=== PATIENT | female | born 1970 | race Caucasian/White ===

== ENCOUNTER 2019-02-17 15:18 | Emergency (ER) | payer BC, SELFPAY ==
[2019-02-17 15:19] VITALS: BP 155/89; PULSE 79; RESP 16; TEMP 36.4; O2SAT 97; BMI 55.0
--- NOTE | 2019-02-17 15:42 | ED.VIS.GEN ---
History of Present Illness Chief Complaint: Back Informant: Patient Onset: Days Context: Gradual Onset, - - Worse today Timing: Waxes and wanes Current Severity: Mild Maximum Severity: Moderate Narrative: Patient presents with right mid back pain. Patient states pain is been mild the past several days but seem to worsen today. It does not radiate anywhere. It is worse when she twists to the left. She does not have any urinary symptoms. She has no known injury to her back. - Past Medical History (1) Hypertension Status: Chronic (2) Hypothyroid Status: Chronic Past Medical History - Allergies and Home Meds Allergies/Adverse Reactions: Allergies Penicillins Allergy (Verified 02/17/19 15:20) Hives Primary Care Physician: Josh Hartman DO [Primary Care Provider] - Smoking Status: Never smoker Review of Systems General: Denies: Chills, Fever Eyes: Denies: Visual changes - bilaterally ENT: Denies: Bilateral ear pain Cardiovascular: Denies: Chest pain Respiratory: Denies: Dyspnea, Cough Gastrointestinal: Denies: Abdominal pain, Nausea, Vomiting, Diarrhea Musculoskeletal: Reports: Back pain. Denies: Extremity Pain Skin: Denies: Rash Neurological: Denies: Headache, Weakness, Numbness Allergy: Denies: Uticaria Physical Exam Vital Signs/Narrative: Vital Signs Temp Pulse Resp BP Pulse Ox 02/17/19 15:19 97.5 F L 79 16 155/89 H 97 Inital Vital Signs reviewed: Yes General: Well nourished, Well developed Head: Normocephalic ENT: Moist mucous membranes Neck: Supple Cardiovascular: Regular rate, Regular rhythm Respiratory: No distress, CTA bilaterally Abdomen: Soft, Nontender Back: - - Patient has reproducible tenderness just to the right of the lower thoracic spine. No overlying skin changes. Skin: Normal color Neurological: Alert, Oriented x3, Normal Strength, Normal Sensation Psychological: Normal affect Diagnostic/Tx/Re-eval Laboratory Results 02/17/19 15:55 Urine Color Yellow Urine Clarity Sl. Cloudy Urine pH 6.0 Ur Specific [place] 1.015 Urine Protein Negative Urine Glucose (UA) Normal Urine Ketones Negative Urine Occult Blood Negative Urine Nitrite Negative Urine Bilirubin Negative Urine Urobilinogen Normal Ur Leukocyte Esterase Negative Urine RBC 0 SEEN Urine WBC 0 SEEN Ur Squamous Epith Cells 0-5 SEEN Urine Bacteria RARE Urine Mucus 0 SEEN - Medical Decision Making Patient taken Aleve just prior to arrival. Urinalysis was checked and unremarkable. I do believe her back pain is secondary to muscle strain. She will be written for prescription strength Aleve and given a few Thornton for breakthrough pain. ED Disposition - Plan for ED Patient: Disposition: Home or Assisted Living Diagnosis: Back pain Instructions: BACK PAIN (Acute or Chronic) Prescriptions: Naproxen [Naprosyn] 500 mg PO BID PRN PRN #20 tab PRN Reason: Pain Score 1-10/10 Transmission Status: Pending to [facility] Hydrocodone Bitart/Apap 5-325 [Thornton 5MG-325MG] 1 tablet PO Q6H PRN PRN 3 Days #10 tablet PRN Reason: Pain Transmission Status: Sent to [facility] Referrals: Josh Hartman DO [Primary Care Provider] - 1 Week if not improving
[2019-02-17 15:59] LABS: Mucous, Urine 0 SEEN /hpf (<or=2+); Red Blood Cells-Urine 0 SEEN /hpf (0-5); White Blood Cells 0 SEEN /hpf (0-5)
[2019-02-17 16:02] LABS: Color, Urine Yellow (Yellow); Glucose, Dipstick Normal (Normal); Ketone-Dipstick Negative (Negative); Leukocyte Esterase-Dipstick Negative /ul (Negative); Nitrite-Dipstick Negative (Negative); Occult Blood-Urine Negative /ul (Negative); Protein-Dipstick Negative (Negative); Specific Gravity, Urine 1.015 (1.002-1.030); Urine Bilirubin Dipstick Negative (Negative); Urine Clarity Sl. Cloudy (Clear); Urine Urobilinogen Normal (Normal)
[2019-02-17 16:09] LABS: Bacteria RARE /hpf (None Seen); Squamous Epithelial Cells - UA 0-5 SEEN /hpf (5-10)
== END 2019-02-17 16:45 | disposition home or self-care (01) ==
PROVIDERS: Emergency Provider Emergency Medicine; Family Provider Student in an Organized Health Care Education/Training Program; PCP Student in an Organized Health Care Education/Training Program
DX: M54.9 Dorsalgia, unspecified (principal); I10 Essential (primary) hypertension; E03.9 Hypothyroidism, unspecified; Z88.0 Allergy status to penicillin
CPT/HCPCS: 81001; 99283

== ENCOUNTER → 2020-07-05 17:41 | Outpatient (CLI) | payer BC, SELFPAY ==
[2020-06-25 14:11] VITALS: BMI 54.1
--- NOTE | 2020-07-05 17:44 | MRI_ITS ---
STUDY: MRI LEFT KNEE REASON FOR EXAM: Female, 49 years old. Medial knee pain, injury TECHNIQUE: Standardized fat and water weighted pulse sequences were obtained in all 3 orthogonal planes. COMPARISON: None. FINDINGS: Normal medial meniscus. Normal hyaline cartilage of the medial femorotibial compartment. Normal medial femoral condyle and tibial plateau. Normal medial collateral ligamentous complex (MCL). Normal distal semimembranosus, gracilis and semitendinosus tendons. Normal lateral meniscus. Normal hyaline cartilage of the lateral femorotibial compartment. Normal lateral femoral condyle and tibial plateau. Normal proximal tibiofibular articulation. Normal lateral collateral (fibular) ligament. Normal popliteus tendon. Normal biceps femoris tendon. Normal anterior cruciate ligament (ACL). Normal posterior cruciate ligament (PCL). There is arthrosis of the patellofemoral articulation. There is diffuse, less than 50% thickness articular cartilage loss of the patellofemoral compartment. Normal medial and lateral patellar retinaculum. Normal quadriceps tendon. Normal patellar tendon. Normal Hoffa''s fat pad. There is no joint effusion. Mild tricompartmental osteoarthritis. The soft tissues are unremarkable. The otherwise visualized osseous structures are unremarkable. MRI/Lower Ext Joint Only (Routine) IMPRESSION: No evidence of internal drainage. [id number] chondromalacia patella. Mild tricompartmental osteoarthritis. No significant joint effusion. Electronically Signed: Andre Casillas DO at 6:36 EDT Tel , Service support ,
== END ==
LOC: MRI 17:44
PROVIDERS: PCP Student in an Organized Health Care Education/Training Program; Referring Provider Orthopaedic Surgery; Visit Provider Orthopaedic Surgery
DX: S83.202A Bucket-handle tear of unspecified meniscus, current injury, unspecified knee, initial encounter (principal); M25.562 Pain in left knee
CPT/HCPCS: 73721

== ENCOUNTER → 2020-12-18 | Outpatient (CLI) | payer BC, SELFPAY | END | disposition home or self-care (01) | LOC: LABSPEC 09:09 | PROVIDERS: PCP Student in an Organized Health Care Education/Training Program; Visit Provider Family Medicine | DX: Z03.818 Encounter for observation for suspected exposure to other biological agents ruled out (principal) | CPT/HCPCS: 87635; U0005; U0003 ==

== ENCOUNTER 2022-09-09 17:02 | Emergency (ER) | payer OTHER, SELFPAY ==
[2022-09-09 17:05] VITALS: BP 163/91; PULSE 68; RESP 14; TEMP 36.2; O2SAT 99; BMI 50.7
--- NOTE | 2022-09-09 18:16 | EDS_ITS ---
HPI History of Present Illness Chief Complaint: Abd Pain Informant: patient Narrative Narrative: Patient presents secondary to right flank pain. She had an episode 2 days ago of pain that occurred after she had eaten Italian toast and sausage. She got sharp pain that wrapped around the right mid abdomen. She got sweaty and vomited and then felt better within 20 minutes. Today after lunch she has developed recurrent pain that wraps around the right mid abdomen and into the right lower quadrant. Pain has been more persistent today. No fever or chills. No urinary symptoms. [facility] Medical History (Updated 09/09/22 @ 20:[address] Nani Giles MD) Arthritis Diabetes Hypertension Hypothyroid Sjogren's syndrome Strain of left knee Home Medications bupropion HCl 100 mg tablet,12 hr sustained-release 100 mg PO BID 02/17/19 [History Last Taken Unknown] naproxen 500 mg tablet 500 mg PO BID PRN PRN Pain Score 1-10/10 #20 tabs 02/17/19 [Rx Last Taken Unknown] fluoxetine 10 mg capsule 10 mg PO DAILY 06/25/20 [History Last Taken Unknown] fluoxetine 40 mg capsule 40 mg PO DAILY 06/25/20 [History Last Taken Unknown] levothyroxine 100 mcg tablet 100 mcg PO DIRECTED 06/25/20 [History Last Taken Unknown] lisinopril 20 mg-hydrochlorothiazide 12.5 mg tablet 1 tab PO DAILY 06/25/20 [History Last Taken Unknown] lorazepam 0.5 mg tablet 0.5 mg PO DAILY PRN 06/25/20 [History Last Taken Unknown] metformin 500 mg tablet,extended release 24 hr 1,000 mg PO DAILY 06/25/20 [History Last Taken Unknown] sitagliptin phosphate 100 mg tablet 100 mg PO DAILY 06/25/20 [History Last Taken Unknown] hydrocodone-acetaminophen 5-325mg 5mg-325mg 1 tab PO Q6H PRN PRN Pain 3 days #10 TABLETS 09/09/22 [Rx Last Taken Unknown] naproxen 500 mg tablet (Naprosyn) 500 mg PO BID PRN pain #20 tabs 09/09/22 [Rx Last Taken Unknown] Allergy/AdvReac Type Severity Reaction Status Date / Time Penicillins Allergy Severe Anaphylaxis Verified 09/09/22 17:05 bee pollen Allergy Mild Rash Verified 09/09/22 17:05 yellow dye Allergy Rash Verified 09/09/22 17:05 Family History Mother Diabetes Arthritis Father Colon cancer Hypertension CVA (cerebral vascular accident) Diabetes Surgical History History of carpal tunnel release of both wrists History of hysterectomy Social History household members: spouse housing: house current occupational status: employed Smoking Status: Never smoker alcohol intake: never what type of physical activity do you participate in: walking do you feel safe at home: Yes ROS ROS ED Constitutional Constitutional ED: Denies chills or fever(s) Eyes Eyes: Denies change in vision or discharge from eye(s) ENT ENT ED: Denies discharge from eye(s), rhinorrhea or sore throat Cardiovascular Cardiovascular: Denies chest pain or palpitations Respiratory/Chest Respiratory/Chest: Denies cough or dyspnea Gastrointestinal Gastrointestinal: Reports abdominal pain, nausea and vomiting Genitourinary Genitourinary ED: Denies difficulty urinating, dysuria or hematuria Musculoskeletal Musculoskeletal: Reports back pain; Denies extremity pain Integumentary Denies Abrasions or rash Neurologic Neurologic: Denies headache(s) or weakness Psychiatric Psychiatric: Denies anxiety or depression Allergic/Immunologic Allergic/Immunologic ED: Denies lip swelling or urticaria EXAM Physical Exam Const Vital Signs: 09/09/22 17:05 Temperature 97.1 F L Temperature Source Temporal Pulse Rate 68 Respiratory Rate 14 Blood Pressure 163/91 H Blood Pressure Mean 115 Pulse Ox 99 Oxygen Delivery Method Room Air Positive well nourished and well developed General Appearance ED: well developed HEENT Reports normocephalic and head/scalp atraumatic Eyes PERRL and EOMs intact bilaterally Neck supple Chest Wall inspection of chest normal and palpation of chest normal Resp normal respiratory effort and clear to auscultation bilaterally Cardio regular rate and regular rhythm GI GI Narrative: Abdomen soft with right mid abdominal tenderness. No guarding or rebound. Hypoactive bowel sounds. Palpation: soft Back/Spine no CVA tenderness Extremity normal to inspection Neuro oriented x3 and no sensory deficits noted Sensorium / Orientation: alert Motor Exam: strength 5/5 throughout Psych mental status grossly normal Skin no rashes or lesions noted MDM MDM MDM Narrative Medical decision making narrative: Patient declined anything for pain. Labwork obtained to evaluate for leukocytosis, anemia, and electrolyte derangement. Urinalysis obtained to evaluate for infection/hematuria. CT flank obtained to evaluate for kidney stone, cholecystitis. History & Record Review Discussion w/independent historian: Patient Lab Data Attestation: I reviewed the patient's lab results. Labs: Laboratory Results - last 24 hr 09/09/22 18:30 WBC 7.1 RBC 4.91 Hgb 14.4 Hct 43.9 MCV 89.4 MCH 29.3 MCHC 32.8 RDW Std Deviation 47.4 H RDW Coeff of Carolyn 14.5 Plt Count 181 MPV 10.6 Immature Gran % (Auto) 0.300 Neut % (Auto) 57.7 Lymph % (Auto) 32.2 [place] % (Auto) 7.4 Eos % (Auto) 2.0 Baso % (Auto) 0.4 Absolute Neuts (auto) 4.1 Absolute Lymphs (auto) 2.27 Nucleated RBC % 0 Sodium 136 Potassium 4.3 Chloride 102 Carbon Dioxide 31.0 Anion Gap 3 L BUN 16 Creatinine 0.87 Estim Creat Clear Calc 72.42 Est GFR (MDRD) Af Amer 88 Est GFR (MDRD) Non-Af 73 BUN/Creatinine Ratio 18.4 Glucose 131 H Calcium 9.1 Total Bilirubin 0.40 Direct Bilirubin 0.11 AST 26 ALT 31 Alkaline Phosphatase 103 Total Protein 8.4 H Albumin 3.4 Globulin 5.0 H Lipase 33 Urine Color Yellow Urine Clarity Clear Urine pH 5.0 Ur Specific [place] 1.020 Urine Protein 100 H Urine Glucose (UA) Normal Urine Ketones Negative Urine Occult Blood Negative Urine Nitrite Negative Urine Bilirubin Negative Urine Urobilinogen Normal Ur Leukocyte Esterase 25 H Urine RBC 0 SEEN Urine WBC 5-10 SEEN Ur Squamous Epith Cells 0-5 SEEN Urine Bacteria 0 SEEN Urine Mucus 0 SEEN Radiography Diagnostic Testing: Clinical Impression(s) from Imaging Studies Abdomen/Pelvis CT 09/09/22 18:45 IMPRESSION: Questionable minimal right hydronephrosis. No obstructing stone or mass. Consider CT urogram. Hepatosplenomegaly with diffuse hepatic steatosis. Electronically Signed: Willard Mcdowell MD at 19:04 EDT , Treatment and Re-Evaluation :: CBC reveals normal white count at 7.1 with no left shift. LFTs are unremarkable. Lipase is normal at 33. Urinalysis reveals 5-10 white cells with 0-5 epithelial cells. No bacteria noted. No nitrites noted. CT flank reveals questionable mild right hydronephrosis. No obstructing stone or masses noted. Gallbladder is unremarkable. Appendix is not well visualized. On repeat evaluation patient is starting to have increased pain. She will be given Toradol, morphine, Zofran. I discussed with her that she does have slight backup of fluid in the right kidney which may represent a recently passed stone and still having some spasm. She will be treated with naproxen and [place] for breakthrough pain at home. Return instructions given. Discharge Plan Triage Chief Complaint: Abd Pain ED Provider: Nani Giles Dx/Rx/DC Orders Clinical Impression: Right flank pain Instructions: ED Flank Pain, Uncertain Cause Prescriptions: New naproxen [Naprosyn] 500 mg tablet 500 mg PO BID PRN (Reason: pain) Qty: 20 0RF hydrocodone-acetaminophen 5-325 mg tablet 1 tab PO Q6H PRN PRN (Reason: Pain) 3 Days Qty: 10 0RF No Action levothyroxine 100 mcg tablet 100 mcg PO DIRECTED Patient Comments: TAKE 1 TABLET BY MOUTH ONCE DAILY ON 6 DAYS A WEEK AND 2 TABLETS DAILY ON 1 DAY A WEEK lisinopril-hydrochlorothiazide 20-12.5 mg tablet 1 tab PO DAILY Patient Comments: TAKE 1 TABLET BY MOUTH ONCE DAILY fluoxetine 40 mg capsule 40 mg PO DAILY Patient Comments: TAKE 1 CAPSULE BY MOUTH ONCE DAILY fluoxetine 10 mg capsule 10 mg PO DAILY Patient Comments: TAKE 1 CAPSULE BY MOUTH ONCE DAILY IN ADDITION TO 40 MG CAPSULE Januvia 100 mg tablet 100 mg PO DAILY Patient Comments: TAKE 1 TABLET BY MOUTH ONCE DAILY metformin 500 mg tablet extended release 24 hr 1,000 mg PO DAILY Patient Comments: TAKE 2 TABLETS BY MOUTH ONCE DAILY WITH LUNCH lorazepam 0.5 mg tablet 0.5 mg PO DAILY PRN bupropion HCl 100 MG tablet sustained-release 12 hr 100 mg PO BID naproxen 500 MG tablet 500 mg PO BID PRN PRN (Reason: Pain Score 1-10/10) Qty: 20 0RF Primary Care Provider: Josh Hartman Referrals: Josh Hartman DO [Primary Care Provider] - 1-2 Weeks Disposition Disposition: Home, Self Care
[2022-09-09] MEDS: 0.9% Normal Saline 1,000 ML 150 ML IV (18:36)
--- NOTE | 2022-09-09 18:45 | CT_ITS ---
INDICATION: right flank pain EXAMINATION: CT Abdomen And Pelvis W/O Contrast Injection TECHNIQUE: Helically acquired images were obtained of the abdomen and pelvis without the use of IV contrast. A radiation dose optimization technique was used for this scan. Oral contrast: None. COMPARISON: None FINDINGS: Evaluation of the solid organs and vascular structures is limited without intravenous contrast. Visualized lung bases: Unremarkable Liver: Diffusely hypodense consistent with fatty liver. Enlarged measuring 20 cm in craniocaudal dimension. Gallbladder: Unremarkable Spleen: Mildly enlarged measuring 14.7 cm in largest dimension. Pancreas: Unremarkable Adrenal Glands: Unremarkable Kidneys: Questionable minimal right hydronephrosis. No obstructing stone or mass. Mild perinephric fat stranding on the right. Vasculature: Mild scattered aortoiliac atherosclerotic calcifications. GI Tract: The appendix is not well-visualized. Lymphadenopathy: None Peritoneum: No ascites. Bladder: Unremarkable Reproductive organs: Unremarkable Bones/Soft tissues: Mild scattered degenerative changes of the visualized spine. CT/Abdomen/Pelvis without Cont IMPRESSION: Questionable minimal right hydronephrosis. No obstructing stone or mass. Consider CT urogram. Hepatosplenomegaly with diffuse hepatic steatosis. Electronically Signed: Willard Mcdowell MD at 19:04 EDT ,
[2022-09-09 18:56] LABS: Bacteria 0 SEEN /hpf (None Seen); Mucous, Urine 0 SEEN /hpf (<or=2+); Red Blood Cells-Urine 0 SEEN /hpf (0-5)
[2022-09-09 19:08] LABS: Absolute Lymphocyte Count 2.27 X10^3/uL (0.83-4.51); Absolute Neutrophil Count 4.1 X10^3/uL (2.0-7.7); Basophil# 0.03 X10^3/uL; Basophil% 0.4 % (0-1); Eosinophil# 0.14 X10^3/uL; Hematocrit 43.9 % (37-47); Hemoglobin 14.4 g/dL (12.0-15.0); Lymphocyte # 2.27 X10^3/ul (0.83-4.51); Lymphocyte % 32.2 % (19-41); Mean Corp Hgb Conc 32.8 g/dL (32-36); Mean Corpuscular Hgb 29.3 pg (27.0-32.0); Mean Corpuscular Volume 89.4 fL (81-99); Mean Platelet Vol. 10.6 fl (6.2-12.0); Monocyte# 0.52 X10^3/uL; Monocyte% 7.4 % (0-10); NRBC Flagged by Analyzer 0 % (0-5); Neutrophil # 4.07 X10^3/uL (2.7-7.7); Neutrophil % 57.7 % (47-70); Platelet Count 181 K/mm3 (150-450); RBC Distribution Width CV 14.5 % (11.6-14.6); RBC Distribution Width SD 47.4 fl (35.1-43.9); Red Blood Count 4.91 M/mm3 (4.2-5.4); White Blood Count 7.1 K/mm3 (4.4-11.0)
[2022-09-09 19:12] LABS: AST(SGOT) 26 U/L (15-37); Alanine Aminotransfer ALT/SGPT 31 U/L (13-56); Albumin, Serum 3.4 g/dL (3.2-5.0); Alkaline Phosphatase 103 U/L (45-117); Anion Gap 3 (5-15); BUN 16 mg/dL (7-18); BUN/Creat Ratio 18.4 RATIO (10-20); Bilirubin, Direct 0.11 mg/dL (0.00-0.30); Calcium,Total 9.1 mg/dL (8.5-10.1); Chloride 102 mmol/L (98-107); Creatinine, Serum 0.87 mg/dL (0.55-1.02); EST Glomerular Filtration Rate 73 mL/min (>60); Est Glom Filt Rate - Afr Amer 88 mL/min (>60); Estimated Creatinine Clearance 72.42 ml/min; Glucose 131 mg/dL (74-106); Lipase 33 U/L (13-75); Potassium 4.3 mmol/L (3.5-5.1); Protein, Total 8.4 g/dL (6.4-8.2); Sodium Level 136 mmol/L (136-145)
[2022-09-09 19:49] LABS: Color, Urine Yellow (Yellow); Glucose, Dipstick Normal (Normal); Ketone-Dipstick Negative (Negative); Leukocyte Esterase-Dipstick 25 /ul (Negative); Nitrite-Dipstick Negative (Negative); Occult Blood-Urine Negative /ul (Negative); Protein-Dipstick 100 mg/dl (Negative); Urine Bilirubin Dipstick Negative (Negative); Urine Clarity Clear (Clear); Urine Urobilinogen Normal (Normal)
[2022-09-09 19:59] LABS: Squamous Epithelial Cells - UA 0-5 SEEN /hpf (5-10); White Blood Cells 5-10 SEEN /hpf (0-5)
[2022-09-09 20:44] VITALS: BP 126/71; PULSE 87; RESP 18; O2SAT 96
[2022-09-09] MEDS: Ketorolac 30 MG/ML Syringe IV (20:50)
[2022-09-09] MEDS: Ondansetron 4 MG/2 ML Vial IV (20:50)
[2022-09-09] MEDS: Morphine 4 MG/ML Syringe IV (20:50)
== END 2022-09-09 21:13 | disposition home or self-care (01) ==
PROVIDERS: Emergency Provider Emergency Medicine; PCP Student in an Organized Health Care Education/Training Program; Visit Provider Emergency Medicine
DX: R10.9 Unspecified abdominal pain (principal); E11.9 Type 2 diabetes mellitus without complications; I10 Essential (primary) hypertension; R11.10 Vomiting, unspecified; E03.9 Hypothyroidism, unspecified; Z79.84 Long term (current) use of oral hypoglycemic drugs; Z79.890 Hormone replacement therapy; Z79.899 Other long term (current) drug therapy
CPT/HCPCS: 74176; 80048; 80076; 81001; 83690; 85025; 96361; 96374; 96375; 99283; J7030; A4216; J2405

== ENCOUNTER 2023-02-10 16:40 | Emergency (ER) | payer OTHER, SELFPAY ==
[2023-02-10 16:40] VITALS: BP 161/88; PULSE 87; RESP 16; TEMP 36.8; O2SAT 97; BMI 52.2
--- NOTE | 2023-02-10 17:07 | CT_ITS ---
STUDY: CT SOFT TISSUE NECK WITH CONTRAST REASON FOR EXAM: Female, 52 years old. neck mass -- right ant cerv LAD, enlarging RADIATION DOSAGE (If Supplied By Facility): CTDIvol = ( 19.11 ) mGy, DLP = ( 539.46 ) mGycm TECHNIQUE: The patient was scanned in a multi-detector CT scanner. High resolution transaxial imaging was performed following intravenous administration of IV 100mL Isovue-300. Sagittal and coronal images were reconstructed. Individualized dose optimization techniques were used for this CT. COMPARISON: None. FINDINGS: Nonspecific enlargement of the right parotid gland which appears edematous. No definite focal soft tissue mass. Findings are most suggestive of asymmetric right parotid sialoadenitis. No sialolith is seen. Mild overlying soft tissue induration and skin thickening. No focal fluid collection or evidence for abscess. Normal bilateral manager photo spaces. Normal bilateral parapharyngeal spaces. Normal bilateral carotid spaces. Normal bilateral sublingual and submandibular glands and spaces. Normal visualized nasopharynx. Normal retropharyngeal space. Normal perivertebral space. Normal visualized bilateral faucial tonsils. The visualized tongue, tongue base and oropharynx are normal. The visualized cervical lymph nodes (levels I-) are within normal size limits, and maintain normal morphology. There is no demonstrated solid or cystic mass lesion. There is no abnormal contrast enhancement. Normal epiglottis, bilateral vallecula and hypopharynx. The pre-epiglottic and paraglottic adipose spaces are normal. Normal visualized bilateral piriform sinuses, aryepiglottic folds, vocal cords, and arytenoid-cricoid articulations. Normal subglottic trachea. Normal bilateral lobes of the thyroid gland. Normal visualized pulmonary apices. Normal visualized paranasal sinuses. Normal visualized cervical spine. CT/Soft Tissue Neck WITH Contrast IMPRESSION: Probable nonspecific right parotid sialoadenitis. No solid mass or evidence of abscess. Electronically Signed: David Waters MD at 19:20 EST ,
--- NOTE | 2023-02-10 17:22 | EDS_ITS ---
HPI History of Present Illness Chief Complaint: Other, Pain/Inj Informant: patient Narrative Narrative: Presents evaluation enlarging mass right neck noted 2 days ago. States was dime size now has enlarged. No trouble swallowing or trouble breathing. No ear pain no dental pain. No fevers. History of diabetes on oral medications. [facility] Medical History Arthritis Diabetes Hypertension Hypothyroid Sjogren's syndrome Strain of left knee Home Medications bupropion HCl 100 mg tablet,12 hr sustained-release 100 mg PO BID 02/17/19 [History Last Taken Unknown] naproxen 500 mg tablet 500 mg PO BID PRN PRN Pain Score 1-10/10 #20 tabs 02/17/19 [Rx Last Taken Unknown] fluoxetine 10 mg capsule 10 mg PO DAILY 06/25/20 [History Last Taken Unknown] fluoxetine 40 mg capsule 40 mg PO DAILY 06/25/20 [History Last Taken Unknown] levothyroxine 100 mcg tablet 100 mcg PO DIRECTED 06/25/20 [History Last Taken Unknown] lisinopril 20 mg-hydrochlorothiazide 12.5 mg tablet 1 tab PO DAILY 06/25/20 [History Last Taken Unknown] lorazepam 0.5 mg tablet 0.5 mg PO DAILY PRN 06/25/20 [History Last Taken Unknown] metformin 500 mg tablet,extended release 24 hr 1,000 mg PO DAILY 06/25/20 [History Last Taken Unknown] sitagliptin phosphate 100 mg tablet 100 mg PO DAILY 06/25/20 [History Last Taken Unknown] hydrocodone-acetaminophen 5-325mg 5mg-325mg 1 tab PO Q6H PRN PRN Pain 3 days #10 TABLETS 09/09/22 [Rx Last Taken Unknown] naproxen 500 mg tablet (Naprosyn) 500 mg PO BID PRN pain #20 tabs 09/09/22 [Rx Last Taken Unknown] clindamycin HCl 150 mg capsule 450 mg (3 x 150 mg) PO TID #90 caps 02/10/23 [Rx Last Taken Unknown] hydrocodone-acetaminophen 5-325mg 5mg-325mg 1 tab PO Q6H PRN PRN Pain 3 days #12 TABLETS 02/10/23 [Rx Last Taken Unknown] ibuprofen 600 mg tablet 600 mg PO Q6H PRN PRN pain #20 TABLETS 02/10/23 [Rx Last Taken Unknown] Allergy/AdvReac Type Severity Reaction Status Date / Time Penicillins Allergy Severe Anaphylaxis Verified 02/10/23 16:42 bee pollen Allergy Mild Rash Verified 02/10/23 16:42 yellow dye Allergy Rash Verified 02/10/23 16:42 Family History Mother Diabetes Arthritis Father Colon cancer Hypertension CVA (cerebral vascular accident) Diabetes Surgical History History of carpal tunnel release of both wrists History of hysterectomy Social History household members: spouse housing: house current occupational status: employed Smoking Status: Never smoker alcohol intake: never what type of physical activity do you participate in: walking do you feel safe at home: Yes ROS ROS ED Constitutional Constitutional ED: Denies chills, fever(s) or sweats Eyes Eyes: Denies change in vision ENT ENT ED: Reports other Details: Right neck mass ; Denies dysphagia or sore throat Cardiovascular Cardiovascular: Denies chest pain, leg edema, palpitations or racing heartbeat Respiratory/Chest Respiratory/Chest: Denies cough, dyspnea or dyspnea on exertion Gastrointestinal Gastrointestinal: Denies abdominal pain, diarrhea, nausea or vomiting Genitourinary Genitourinary ED: Denies dysuria, hematuria or urinary frequency Musculoskeletal Musculoskeletal: Denies back pain, extremity pain or neck pain Integumentary Denies rash or wounds Neurologic Neurologic: Denies headache(s), paresthesias or weakness EXAM Physical Exam Const Vital Signs: 02/10/23 16:40 02/10/23 17:37 02/10/23 20:10 Temperature 98.2 F Temperature Source Temporal Pulse Rate 87 81 Respiratory Rate 16 16 Respiratory Effort Normal Non-Labored Respiratory Pattern Normal Blood Pressure 161/88 H Blood Pressure Mean 112 Pulse Ox 97 97 Oxygen Delivery Method Room Air Positive well nourished and well developed General Appearance ED: well developed and NAD HEENT Reports moist mucous membranes HEENT Narrative: Airway patent no stridor normocephalic and atraumatic Eyes PERRL, EOMs intact bilaterally and conjunctivae normal General Eye ED: Yes normal appearance of both eyes Neck supple Neck Narrative: Enlarged tender right sided neck mass anterior upper cervical golf ball size. General: Negative for tenderness Chest Wall Chest: Negative for tenderness Resp normal respiratory effort and normal air movement Effort and Inspection: symmetric chest movement; Negative for respiratory distress Cardio regular rate, regular rhythm and no murmurs Peripheral Pulses: pulses 2+ throughout GI normal to inspection, nondistended, normoactive bowel sounds and non-tender Palpation: Negative for guarding or rebound tenderness present Back/Spine no CVA tenderness and no thoracic nor lumbar tenderness Extremity normal to inspection General Extremety ED: Negative for edema or tenderness General Extremity: Negative for edema Neuro oriented x3 and no sensory deficits noted Sensorium / Orientation: awake and alert Skin no rashes or lesions noted and no wounds MDM MDM MDM Narrative Medical decision making narrative: Interventions / MDM: Differential diagnosis: Lymphangitis, sialoadenitis Diagnosis considered but do not suspect: N/A My EKG interpretation: N/A Imaging independently reviewed and interpreted by myself: CT soft tissue neck: Right-sided parotid sialadenitis with no stone noted per radiology. External documents reviewed: N/A Test considered but not ordered:N/A ED course: Patient tender right sided parotid submandibular region. No airway compromise. Enlarging mass right neck, basic labs obtained, CT soft tissue ordered for further evaluation. Labs stable CT scan with concerns for parotid sialoadenitis. Discussed results with the patient. Toradol started she started on clindamycin as she is allergic to penicillin. Discussed sour drops. Short prescription for [place] for home use as needed. Outpatient follow-up with the ENT. All questions were answered. Re-evaluation: stable Disposition discussed with patient/family/significant other: Patient Case discussed with consulting clinician: N/A This note was generated with [email or web address] dictation software. It may contain incorrect words, spelling, and punctuation that were not noted in checking the note before signing. Lab Data Attestation: I reviewed the patient's lab results. Labs: Laboratory Results - last 24 hr 02/10/23 17:30 WBC 6.4 RBC 4.99 Hgb 14.2 Hct 43.9 MCV 88.0 MCH 28.5 MCHC 32.3 RDW Std Deviation 43.5 RDW Coeff of Carolyn 13.6 Plt Count 146 L MPV 11.2 Immature Gran % (Auto) 0.500 Neut % (Auto) 67.0 Lymph % (Auto) 23.4 [place] % (Auto) 6.4 Eos % (Auto) 2.2 Baso % (Auto) 0.5 Absolute Neuts (auto) 4.3 Absolute Lymphs (auto) 1.50 Nucleated RBC % 0 Sodium 134 L Potassium 4.0 Chloride 100 Carbon Dioxide 32.0 Anion Gap 2 L BUN 15 Creatinine 1.06 H Estim Creat Clear Calc 58.78 Est GFR (MDRD) Af Amer 70 Est GFR (MDRD) Non-Af 58 L BUN/Creatinine Ratio 14.2 Glucose 329 H Calcium 8.8 Radiography Diagnostic Testing: Clinical Impression(s) from Imaging Studies Soft Tissue Neck CT 02/10/23 17:07 IMPRESSION: Probable nonspecific right parotid sialoadenitis. No solid mass or evidence of abscess. Electronically Signed: David Waters MD at 19:20 EST , Discharge Plan Triage Chief Complaint: Other, Pain/Inj ED Provider: Felix Lau Dx/Rx/DC Orders Clinical Impression: Acute sialoadenitis, Facial swelling Instructions: ED Salivary Gland Infection Prescriptions: New clindamycin HCl 150 mg capsule 450 mg PO TID Qty: 90 0RF hydrocodone-acetaminophen [hydrocodone-acetaminophen] 5-325 mg tablet 1 tab PO Q6H PRN PRN (Reason: Pain) 3 Days Qty: 12 0RF ibuprofen 600 mg tablet 600 mg PO Q6H PRN PRN (Reason: pain) Qty: 20 0RF No Action levothyroxine 100 mcg tablet 100 mcg PO DIRECTED Patient Comments: TAKE 1 TABLET BY MOUTH ONCE DAILY ON 6 DAYS A WEEK AND 2 TABLETS DAILY ON 1 DAY A WEEK lisinopril-hydrochlorothiazide 20-12.5 mg tablet 1 tab PO DAILY Patient Comments: TAKE 1 TABLET BY MOUTH ONCE DAILY fluoxetine 40 mg capsule 40 mg PO DAILY Patient Comments: TAKE 1 CAPSULE BY MOUTH ONCE DAILY fluoxetine 10 mg capsule 10 mg PO DAILY Patient Comments: TAKE 1 CAPSULE BY MOUTH ONCE DAILY IN ADDITION TO 40 MG CAPSULE Januvia 100 mg tablet 100 mg PO DAILY Patient Comments: TAKE 1 TABLET BY MOUTH ONCE DAILY metformin 500 mg tablet extended release 24 hr 1,000 mg PO DAILY Patient Comments: TAKE 2 TABLETS BY MOUTH ONCE DAILY WITH LUNCH lorazepam 0.5 mg tablet 0.5 mg PO DAILY PRN bupropion HCl 100 MG tablet sustained-release 12 hr 100 mg PO BID naproxen 500 MG tablet 500 mg PO BID PRN PRN (Reason: Pain Score 1-10/10) Qty: 20 0RF naproxen [Naprosyn] 500 mg tablet 500 mg PO BID PRN (Reason: pain) Qty: 20 0RF hydrocodone-acetaminophen 5-325 mg tablet 1 tab PO Q6H PRN PRN (Reason: Pain) 3 Days Qty: 10 0RF Primary Care Provider: Josh Hartman Referrals: Willard Maria MD [Med Staff - Active Staff] - 1 Week Josh Hartamn DO [Primary Care Provider] - Activity Restrictions/Additional Instructions: CT scan with right parotid sialoadenitis, no clear stone seen. Take antibiotic as prescribed. Use lemon drops to help with salivation. Take pain medications right. Follow-up with ENT for outpatient evaluation. Disposition Disposition: Home, Self Care Discharge Date/Time: 02/10/23 20:10
[2023-02-10 17:43] LABS: Absolute Neutrophil Count 4.3 X10^3/uL (2.0-7.7); Basophil# 0.03 X10^3/uL; Basophil% 0.5 % (0-1); Eosinophil# 0.14 X10^3/uL; Eosinophils% 2.2 % (0-5); Hematocrit 43.9 % (37-47); Hemoglobin 14.2 g/dL (12.0-15.0); Lymphocyte % 23.4 % (19-41); Mean Corp Hgb Conc 32.3 g/dL (32-36); Mean Corpuscular Hgb 28.5 pg (27.0-32.0); Mean Platelet Vol. 11.2 fl (6.2-12.0); Monocyte# 0.41 X10^3/uL; Monocyte% 6.4 % (0-10); NRBC Flagged by Analyzer 0 % (0-5); Neutrophil # 4.29 X10^3/uL (2.7-7.7); Platelet Count 146 K/mm3 (150-450); RBC Distribution Width CV 13.6 % (11.6-14.6); RBC Distribution Width SD 43.5 fl (35.1-43.9); Red Blood Count 4.99 M/mm3 (4.2-5.4); White Blood Count 6.4 K/mm3 (4.4-11.0)
[2023-02-10 17:59] LABS: Anion Gap 2 (5-15); BUN 15 mg/dL (7-18); BUN/Creat Ratio 14.2 RATIO (10-20); Calcium,Total 8.8 mg/dL (8.5-10.1); Chloride 100 mmol/L (98-107); Creatinine, Serum 1.06 mg/dL (0.55-1.02); EST Glomerular Filtration Rate 58 mL/min (>60); Est Glom Filt Rate - Afr Amer 70 mL/min (>60); Estimated Creatinine Clearance 58.78 ml/min; Glucose 329 mg/dL (74-106); Sodium Level 134 mmol/L (136-145)
--- OUTSIDE RECORDS SUMMARY | 2023-02-10 18:32 | XMS RPT_ITS | CCD ---
Author Name Unknown Address [address] [place] [address] Organization [facility] Care Team Providers Care Commercial Singer Name Role Phone Josh De La Torre DO Primary Care Provider JOSH DE LA TORRE Referring Unavailable JOSH DE LA TORRE Primary Care Unavailable JOSH DE LA TORRE Referring Unavailable JOSH DE LA TORRE Primary Care Unavailable JOSH DE LA TORRE Attending Unavailable JOSH DE LA TORRE Primary Care Unavailable JOSH DE LA TORRE Attending Unavailable JOSH DE LA TORRE Primary Care Unavailable Allergies Allergy Classification Reported Allergen(s) Allergy Type Date of Onset Reaction(s) Facility (20 sources) Amoxicillin; Translations: [AMOXICILLIN] Drug Allergy 08-17-2007 Rash [facility] Work Phone: (20 sources) Bees; Translations: [BEES] Propensity to adverse reactions 11-04-2004 [facility] Work Phone: (20 sources) Yellow Dye; Translations: [YELLOW DYE] Drug Allergy 08-22-2010 Itching [facility] Medications Current Medications Medication Drug Class(es) Dates Sig (Normalized) Sig (Original) 0.5 ml dulaglutide 3 mg/ml auto-injector (9 sources) GLP-1 Receptor Agonist Start: 05-15-2021 End: 10-19-2021 dulaglutide (TRULICITY) 1.5 mg/0.5 mL pen injector Indications: Uncontrolled type 2 diabetes mellitus with hyperglycemia (HCC) Inject 1.5 mg subcutaneously one time a week. Inject once per week. Discard Pen After 12 Each 3 05/15/2021 10/19/2021 Discontinued Completed/Discontinued Medications Medication Drug Class(es) Dates Sig (Normalized) Sig (Original) 12 hr buPROPion hydrochloride 100 mg extended release oral tablet (20 sources) Aminoketone Start: 12-18-2020 take 1 tablet by mouth twice daily buPROPion SR (WELLBUTRIN SR) 100 mg 12 hr tablet Indications: Depression, major, recurrent, in partial remission (HCC) , Panic disorder Take 1 tablet by mouth twice daily. 180 tablet 0 12/18/2020 Active Problems Active Problems Problem Classification Problem Date Documented Date Episodic/Chronic Anxiety disorders (20 sources) Panic disorder; Translations: [Panic disorder [episodic paroxysmal anxiety]] Onset: 10-19-2021 Chronic Diabetes mellitus with complications (20 sources) Type II diabetes mellitus uncontrolled; Translations: [Type 2 diabetes mellitus with hyperglycemia] Onset: 09-25-2020 09-25-2020 Chronic Diabetes mellitus without complication (20 sources) Type 2 diabetes mellitus; Translations: [Type 2 diabetes mellitus without complications] Onset: 06-02-2016 07-28-2013 Chronic Disorders of lipid metabolism (17 sources) Dyslipidemia; Translations: [Hyperlipidemia, unspecified] Onset: 04-23-2022 Chronic Essential hypertension (20 sources) Benign essential hypertension; Translations: [Essential (primary) hypertension] Onset: 09-21-2006 Chronic Menopausal disorders (20 sources) Perimenopausal disorder; Translations: [Unspecified menopausal and perimenopausal disorder] Onset: 07-07-2018 07-07-2018 Chronic Menstrual disorders (20 sources) Menorrhagia; Translations: [Excessive and frequent menstruation with regular cycle] Onset: 06-05-2010 07-29-2010 Chronic Mood disorders (20 sources) Recurrent major depression in partial remission; Translations: [Major depressive disorder, recurrent, in partial remission] Onset: 08-07-2010 01-04-2018 Chronic Nutritional deficiencies (12 sources) Vitamin D deficiency; Translations: [Vitamin D deficiency, unspecified] Onset: 04-23-2022 Chronic Other endocrine disorders (20 sources) Polycystic ovary syndrome; Translations: [Polycystic ovarian syndrome] Onset: 07-20-2009 02-04-2021 Chronic Other female genital disorders (20 sources) Complex atypical endometrial hyperplasia; Translations: [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]] Onset: 09-05-2010 09-05-2010 Chronic Other hereditary and degenerative nervous system conditions (20 sources) Restless legs; Translations: [Restless legs syndrome] 08-18-2013 Chronic Other nutritional; endocrine; and metabolic disorders (20 sources) Morbid obesity; Translations: [Morbid (severe) obesity due to excess calories] Onset: 09-05-2010 09-05-2010 Chronic Other nutritional; endocrine; and metabolic disorders (20 sources) Body mass index 40+ - severely obese; Translations: [Morbid (severe) obesity due to excess calories] Onset: 07-28-2019 09-25-2020 Chronic Other screening for suspected conditions (not mental disorders or infectious disease) (2 sources) Patient encounter status; Translations: [Encounter for screening mammogram for malignant neoplasm of breast] Episodic Residual codes; unclassified (20 sources) Obstructive sleep apnea syndrome; Translations: [Obstructive sleep apnea (adult) (pediatric)] 08-18-2013 Chronic Rheumatoid arthritis and related disease (20 sources) Rheumatoid factor positive rheumatoid arthritis; Translations: [Rheumatoid arthritis with rheumatoid factor, unspecified] Onset: 09-25-2020 09-25-2020 Chronic Spondylosis; intervertebral disc disorders; other back problems (4 sources) Lumbar spondylosis; Translations: [Other spondylosis, lumbar region] Onset: 10-10-2022 10-10-2022 Chronic Thyroid disorders (20 sources) Hypothyroidism; Translations: [Hypothyroidism, unspecified] Onset: 09-21-2006 05-29-2015 Chronic Past or Other Problems Problem Classification Problem Date Documented Da te Episodic/Chronic Other connective tissue disease (20 sources) Pain in left foot; Translations: [Pain in left foot] Onset: 07-07-2018 07-07-2018 Episodic Other non-traumatic joint disorders (20 sources) Hip pain; Translations: [Pain in right hip] Onset: 09-25-2020 09-25-2020 Episodic Residual codes; unclassified (20 sources) Family history of cancer of colon; Translations: [Family history of malignant neoplasm of digestive organs] Onset: 07-11-2009 02-04-2021 Episodic Results Test Name Value Interpretation Reference Range Facil ity Vital Signs Date Time Vital Sign Value Performing Clinician Shyam pérez 10-10-2022 09:59-0400 Body temperature 97.5 [degF] Josh De La Torre DO Work Phone: [facility] 10-10-2022 09:59-0400 Body weight 145.15 kg Josh De La Torre DO Work Phone: [facility] 10-10-2022 09:59-0400 Diastolic blood pressure 80 mm[Hg] Josh De La Torre DO Work Phone: [facility] 10-10-2022 09:59-0400 Heart rate 76 /min Josh De La Torre DO Work Phone: [facility] 10-10-2022 09:59-0400 Respiratory rate 20 /min Josh De La Torre DO Work Phone: [facility] 10-10-2022 09:59-0400 Systolic blood pressure 130 mm[Hg] Josh De La Torre DO Work Phone: [facility] 04-23-2022 08:14-0400 Body temperature 97 [degF] Josh De La Torre DO Work Phone: [facility] 04-23-2022 08:14-0400 Body weight 146.06 kg Josh De La Torre DO Work Phone: [facility] 04-23-2022 08:14-0400 Diastolic blood pressure 80 mm[Hg] Josh De La Torre DO Work Phone: [facility] 04-23-2022 08:14-0400 Heart rate 80 /min Josh De La Torre DO Work Phone: [facility] 04-23-2022 08:14-0400 Respiratory rate 16 /min Josh De La Torre DO Work Phone: [facility] 04-23-2022 08:14-0400 Systolic blood pressure 120 mm[Hg] Josh De La Torre DO Work Phone: [facility] 10-19-2021 08:27-0400 Body weight 153.5 kg Josh De La Torre DO Work Phone: [facility] 10-19-2021 08:27-0400 Diastolic blood pressure 84 mm[Hg] Josh De La Torre DO Work Phone: [facility] 10-19-2021 08:27-0400 Heart rate 80 /min Josh De La Torre DO Work Phone: [facility] 10-19-2021 08:27-0400 SaO2% (BldA) [Mass fraction] 95 % Josh De La Torre DO Work Phone: [facility] 10-19-2021 08:27-0400 Systolic blood pressure 122 mm[Hg] Josh De La Torre DO Work Phone: [facility] Encounters Encounter Date Encounter Type Care Provider Facility Start: 12-11-2022 Telephone encounter Josh healy DO Work Phone: [facility] Procedures Date Procedure Procedure Detail Performing Clinician Start: 04-23-2022 Hemoglobin A1c/Hemoglobin.total in Blood Josh De La Torre DO Work Phone: Start: 07-29-2019 Mammography Josh yates DO Work Phone: Plan of Treatment Date Care Activity Detail Author Start: 10-11-2023 ANNUAL PCP TEAM CHRONIC DISEASE VISIT ANNUAL PCP TEAM CHRONIC DISEASE VISIT [facility] Start: 09-27-2023 Hepatitis B surface antibody level LDL CHOLESTEROL [facility] Start: 08-28-2023 3 comp foot exam completed DIABETIC FOOT EXAM [facility] Start: 07-15-2023 Urine microalbumin profile [facility] Start: 04-24-2023 ANNUAL PCP TEAM CHRONIC DISEASE VISIT ANNUAL PCP TEAM CHRONIC DISEASE VISIT [facility] Start: 03-29-2023 Hemoglobin A1c/Hemoglobin.total in Blood HBA1C [facility] Start: 01-17-2023 Hepatitis B surface antibody level LDL CHOLESTEROL [facility] Start: 01-09-2023 End: 03-11-2023 ALBUMIN/CREAT RATIO RND UR ALBUMIN/CREAT RATIO RND UR Lab Routine Controlled type 2 diabetes mellitus without complication, without long-term current use of insulin (HCC) Expected: 01/09/2023, Expires: 03/11/2023 [facility] Work Phone: Immunizations Immunization Date Immunization Notes Care Provider Fa cility 01-01-2021 influenza virus vacc ine, unspecified formulation Josh De La Torre DO Work Phone: [facility] 03-01-2020 COVID-19 vaccine, ag e 12+ yr ([facility] - [facility]) Josh De La Torre DO Work Phone: [facility] Work Phone: 02-09-2020 COVID-19 vaccine, ag e 12+ yr ([employer] - [employer]) Josh De La Torre DO Work Phone: [facility] Work Phone: 11-28-2015 influenza, injectabl e, quadrivalent, contains preservative Josh De La Torre DO Work Phone: [facility] Work Phone: 12-11-2014 influenza, seasonal, injectable Josh De La Torre DO Work Phone: [facility] Work Phone: 01-26-2014 pneumococcal polysaccharide vaccine, 23 valent Josh De La Torre DO Work Phone: [facility] Work Phone: 12-30-2013 influenza, seasonal, injectable Josh De La Torre DO Work Phone: [facility] Work Phone: 07-14-2013 tetanus toxoid, redu felipe diphtheria toxoid, and acellular pertussis vaccine, adsorbed Josh De La Torre DO Work Phone: [facility] Work Phone: Payers Date Payer Category Payer Private Health Insurance [employer] POS [id number] 2022-Present [phone] [address] [place] [address] POS [id number] 2022 Private Health Insurance [id number] 2014 Unknown [employer] PPO OOS [id number] 2014-Present [phone] [address] [place] [address] PPO [id number] 2014 Unknown [employer] PPO OOS [id number] 2014-Present [phone] [address] [place] [address] PPO [id number] 2014 Unknown [id number] Social History Date Type Detail Facility Start: 06-20-2010 End: 10-19-2021 Tobacco smoking status NHIS Never smoked tobacco [facility] Start: 12-28-2020 End: 10-10-2022 Alcohol intake Current non-drinker of alcohol (finding) [facility] Start: 11-14-2019 End: 01-13-2022 History SDOH Alcohol Frequency 1 [facility] Start: 11-14-2019 End: 01-13-2022 History SDOH Alcohol Std Drinks 98 [facility] Start: 07-28-2019 History SDOH Social Connections Phone 5 [facility] Start: 11-14-2019 End: 01-13-2022 History SDOH Social Connections Get Together 2 [facility] Start: 07-28-2019 End: 01-13-2022 History SDOH Social Connections Living 3 [facility] Start: 11-14-2019 History SDOH Financial 4 [facility] Start: 11-14-2019 Education 12 [facility] Start: 1970 Sex Assigned At Not on file [facility] Start: 06-20-2010 End: 10-19-2021 Tobacco use and exposure Smokeless tobacco non-user [facility] Work Phone: Start: 10-09-2021 End: 10-19-2021 Exposure to SARS-CoV-2 (event) Not sure [facility] Start: 01-13-2022 History SDOH Alcohol Std Drinks 0 [facility] Start: 01-13-2022 End: 10-10-2022 History of Social function [employer] Start: 01-13-2022 End: 10-10-2022 Social connection and isolation panel [facility] Do you belong to any clubs or organizations such as sabianist groups, unions, fraternal or athletic groups, or school groups? No [facility] How often do you att end meetings of the clubs or organizations you belong to? Patient refused [facility] Are you now , , , , never or living with a partner? [facility] How often to you hav e a drink containing alcohol? Never [facility] How hard is it for y ou to pay for the very basics like food, housing, medical care, and heating Somewhat hard [facility] Do you feel stress - tense, restless, nervous, or anxious, or unable to sleep at night because your mind is troubled all the time - these days [OSQ] To some extent [facility] (I/We) worried wheth er (my/our) food would run out before (I/we) got money to buy more. Sometimes true [facility] In the past 12 month s, was there a time when you were not able to pay the mortgage or rent on time? Yes [facility] Medical Equipment Procedure Code Equipment Code Equipment Origin al Text Equipment Identifier Dates Satnam Patrickd [id number] - [id number] Start: 08-28-2010 Clinical Notes 07-29-2010 to 12-22-2022 Telephone Encounter - Mayelin Banerjee - 12/22/2022 10:40 AM ESTTelephone Encounter - Josh De La Torre DO - 12/22/2022 9:16 AM ESTTelephone Encounter - Cece Douglas - 12/11/2022 9:03 AM EDT Note Date & Type Note Facility 12-22-2022 Miscellaneous Notes Pt informed via [email or web address] message from 12/10/2022. Mayelin Banerjee I don't know of a [place] pharmacy for this. Can consider using [facility] in [place], [place] for generic Semaglutide if interested. She would need to call the pharmacy 1st and clarify cost etc Josh De La Torre DO Patient [facility]iring [facility]. Advise. Cece Douglas documented in this encounter [facility] 12-11-2022 Miscellaneous Notes Records show valid rx at the pharmacy. Lenore Chavarria LPN documented in this encounter [facility] 10-10-2022 Note HNO ID: [id number] Author: Josh De La Torre, DO Service: ? Author Type: Physician Type: Progress Notes Filed: 10/10/2022 5:43 PM Note Text: Patient presents with: F/U 3 Month HPI: Jenni Mitchell is a 51 year old female who presents to the office today for review of health conditions. Concerns today: Was recently seen at [facility] in the last 1 month for a right renal stone, had SE of hydronephrosis as well. She feels much better. Given naproxen for prn use at that time. Thought it helped her arthritis pain a lot. Would like this for prn use. Ms. Mitchell has past history of diabetes. Since our last visit she denies excessive thirst or increased frequency of urination, chest pain or dyspnea , new or unusual visual symptoms, and low sugar/hypoglycemic reactions. Depression- no. Follows a diabetic diet some of the time. She is compliant with medication(s) and is tolerating med(s) without any side effects. She reports checking her glucose on a once a day schedule with sugars in the <150 range. Patient's last HgA1C was Hemoglobin A1C (%) Date Value 09/26/2022 6.8 01/17/2022 9.1 11/22/2020 8.5 05/22/2020 8.3 Hemoglobin A1C (POCT) (%) Date Value 04/23/2022 6.8 ) Last Ophthalmology exam was within the past 12 months Ms. Mitchell reports history of hyperlipidemia. Current therapy includes diet and exercise. Denies side effects of muscle weakness or achiness. Her most recent lipid panels are reviewed. Cholesterol, Total (mg/dL) Date Value 09/26/2022 172 10/25/2019 150 Total Cholesterol, Nonfasting (mg/dL) Date Value 05/22/2020 162 HDL Cholesterol (mg/dL) Date Value 09/26/2022 43 10/25/2019 42 HDL Cholesterol, Nonfasting (mg/dL) Date Value 05/22/2020 40 LDL Cholesterol (mg/dL) Date Value 09/26/2022 103 10/25/2019 88 LDL Cholesterol, Nonfasting (mg/dL) Date Value 05/22/2020 96 Triglyceride (mg/dL) Date Value 09/26/2022 129 10/25/2019 100 Triglycerides, Nonfasting (mg/dL) Date Value 05/22/2020 130 Ms. Mitchell indicates a history of hypertension and states that she is feeling well and denies any symptoms referable to elevated blood pressure. Specifically denies headache, chest pain, palpitations, dyspnea, and peripheral edema. Patient denies any side effects of her medication(s) and is compliant with their regimen. Last 3 Encounter BP Readings: Date: BP: 10/10/2022 130/80 04/23/2022 120/80 10/19/2021 122/84 She watches her diet for sodium, low fat and low cholesterol some of the time. She does not check BP's generally. Jenni gets sporadic irregular exercise. PAST MEDICAL HISTORY Diagnosis Date Blood clot in vein Right Leg/Superficial Depression Diabetes mellitus, type 2 (HCC) 2013 Hypertension Hypothyroid Migraine, unspecified, with intractable migraine, so stated, without mention of status migrainosus Migraine Obesity Obstructive sleep apnea 2013 PCOS (polycystic ovarian syndrome) s/p hysterectomy Restless leg syndrome SVT (supraventricular tachycardia) (HCC) ? PAST SURGICAL HISTORY Procedure Laterality Date ESSURE 06/05/2010 in One Fallopian Tube HYSTERECTOMY HX 11/13/2010 robotic hyster/BSO PAST SURGICAL HISTORY OF 1998 bilateral CTS surgery, [place] Social History Tobacco Use Smoking status: Never Smokeless tobacco: Never Vaping Use Vaping Use: Never used Substance Use Topics Alcohol use: No Drug use: No FAMILY HISTORY Problem Relation Age of Onset Asthma Mother Thyroid Mother COPD Mother smoker Diabetes Mother Diabetes Father Hypertension Father Colon Cancer Father diagnosed age 55 Coronary Artery Disease Father KS/CABG Breast Cancer Maternal Grandmother Diabetes Paternal Grandmother Diabetes Paternal Grandfather Stroke Paternal Grandfather other (anxiety) Brother Breast Cancer Paternal Aunt Allergies: ALLERGIES Allergen Reactions Amoxacillin [Amoxic* Rash Bees Yellow Dye Itching In Wellbutrin SR Current Meds: levothyroxine (SYNTHROID) 100 mcg tablet Take 1 PO daily x 6 days a week and 2 PO daily x 1 day a week FLUoxetine (PROZAC) 10 mg capsule Take 1 capsule by mouth once daily. Add to 40 mg capsule metFORMIN ER (GLUCOPHAGE XR) 500 mg 24 hr tablet Take 2 tablets by mouth twice daily with meals. FLUoxetine (PROZAC) 40 mg capsule Take 1 capsule by mouth once daily. lisinopril-hydroCHLOROthiazide (ZESTORETIC) 20-12.5 mg per tablet Take 1 tablet by mouth once daily. semaglutide (OZEMPIC) 1 mg/dose (4 mg/3 mL) pen Inject 1 mg subcutaneously one time a week. buPROPion SR (WELLBUTRIN SR) 100 mg 12 hr tablet Take 1 tablet by mouth twice daily. CPAP Initiate CPAP @ 12 cm of water with humidification. Mask - nasal pillow (per patient preference) optional chin strap (if indicated) , filters, tubing, humidifier and lifetime supplies. Dx 327.23 CPAP Initiate CPAP @ 12 cm of water with humidification. Mask - nasal pillow (per pat (more content not included)... [facility] 10-10-2022 Instructions Josh De La Torre DO - 10/10/2022 10:24 AM EDT Semaglutide mail company- [place] vs. [place] [facility] ? Usually starts 0.25 mg a week documented in this encounter [facility] 10-10-2022 History of Present illness Narrative Patient presents with: F/U 3 Month HPI: Jenni Mitchell is a 51 year old female who presents to the office today for review of health conditions. Concerns today: Was recently seen at [facility] in the last 1 month for a right renal stone, had SE of hydronephrosis as well. She feels much better. Given naproxen for prn use at that time. Thought it helped her arthritis pain a lot. Would like this for prn use. Ms. Mitchell has past history of diabetes. Since our last visit she denies excessive thirst or increased frequency of urination, chest pain or dyspnea , new or unusual visual symptoms, and low sugar/hypoglycemic reactions. Depression- no. Follows a diabetic diet some of the time. She is compliant with medication(s) and is tolerating med(s) without any side effects. She reports checking her glucose on a once a day schedule with sugars in the <150 range. Patient's last HgA1C was Hemoglobin A1C (%) Date Value 09/26/2022 6.8 01/17/2022 9.1 11/22/2020 8.5 05/22/2020 8.3 Hemoglobin A1C (POCT) (%) Date Value 04/23/2022 6.8 ) Last Ophthalmology exam was within the past 12 months Ms. Mitchell reports history of hyperlipidemia. Current therapy includes diet and exercise. Denies side effects of muscle weakness or achiness. Her most recent lipid panels are reviewed. Cholesterol, Total (mg/dL) Date Value 09/26/2022 172 10/25/2019 150 Total Cholesterol, Nonfasting (mg/dL) Date Value 05/22/2020 162 HDL Cholesterol (mg/dL) Date Value 09/26/2022 43 10/25/2019 42 HDL Cholesterol, Nonfasting (mg/dL) Date Value 05/22/2020 40 LDL Cholesterol (mg/dL) Date Value 09/26/2022 103 10/25/2019 88 LDL Cholesterol, Nonfasting (mg/dL) Date Value 05/22/2020 96 Triglyceride (mg/dL) Date Value 09/26/2022 129 10/25/2019 100 Triglycerides, Nonfasting (mg/dL) Date Value 05/22/2020 130 Ms. Mitchell indicates a history of hypertension and states that she is feeling well and denies any symptoms referable to elevated blood pressure. Specifically denies headache, chest pain, palpitations, dyspnea, and peripheral edema. Patient denies any side effects of her medication(s) and is compliant with their regimen. Last 3 Encounter BP Readings: Date: BP: 10/10/2022 130/80 04/23/2022 120/80 10/19/2021 122/84 She watches her diet for sodium, low fat and low cholesterol some of the time. She does not check BP's generally. Jenni gets sporadic irregular exercise. PAST MEDICAL HISTORY Diagnosis Date Blood clot in vein Right Leg/Superficial Depression Diabetes mellitus, type 2 (HCC) 2013 Hypertension Hypothyroid Migraine, unspecified, with intractable migraine, so stated, without mention of status migrainosus Migraine Obesity Obstructive sleep apnea 2013 PCOS (polycystic ovarian syndrome) s/p hysterectomy Restless leg syndrome SVT (supraventricular tachycardia) (HCC) ? PAST SURGICAL HISTORY Procedure Laterality Date ESSURE 06/05/2010 in One Fallopian Tube HYSTERECTOMY HX 11/13/2010 robotic hyster/BSO PAST SURGICAL HISTORY OF 1997 bilateral CTS surgery, [place] Social History Tobacco Use Smoking status: Never Smokeless tobacco: Never Vaping Use Vaping Use: Never used Substance Use Topics Alcohol use: No Drug use: No FAMILY HISTORY Problem Relation Age of Onset Asthma Mother Thyroid Mother COPD Mother smoker Diabetes Mother Diabetes Father Hypertension Father Colon Cancer Father diagnosed age 55 Coronary Artery Disease Father [place]/CABG Breast Cancer Maternal Grandmother Diabetes Paternal Grandmother Diabetes Paternal Grandfather Stroke Paternal Grandfather other (anxiety) Brother Breast Cancer Paternal Aunt Allergies: ALLERGIES Allergen Reactions Amoxacillin [Amoxic* Rash Bees Yellow Dye Itching In Wellbutrin SR Current Meds: levothyroxine (SYNTHROID) 100 mcg tablet Take 1 PO daily x 6 days a week and 2 PO daily x 1 day a week FLUoxetine (PROZAC) 10 mg capsule Take 1 capsule by mouth once daily. Add to 40 mg capsule metFORMIN ER (GLUCOPHAGE XR) 500 mg 24 hr tablet Take 2 tablets by mouth twice daily with meals. FLUoxetine (PROZAC) 40 mg capsule Take 1 capsule by mouth once daily. lisinopril-hydroCHLOROthiazide (ZESTORETIC) 20-12.5 mg per tablet Take 1 tablet by mouth once daily. semaglutide (OZEMPIC) 1 mg/dose (4 mg/3 mL) pen Inject 1 mg subcutaneously one time a week. buPROPion SR (WELLBUTRIN SR) 100 mg 12 hr tablet Take 1 tablet by mouth twice daily. CPAP Initiate CPAP @ 12 cm of water with humidification. Mask - nasal pillow (per patient preference) optional chin strap (if indicated) , filters, tubing, humidifier and lifetime supplies. Dx 327.23 CPAP Initiate CPAP @ 12 cm of water with humidification. Mask - nasal pillow (per patient preference) optional chin strap (if indicated) , filters, tubing, humidifier and lifetime supplies. Dx 327.23 COMPOUNDED PRESCRIPTION 1 Units by MISCELLANEOUS route as directed. Dx, TIM, CPAP supplies including Mask, hose and straps naproxen sodium (ALEVE) 220 mg ORAL tablet Take 1 tablet by mouth twice daily. dulaglutide (TRULICITY) 4.5 mg/0.5 mL pen injector Inject 4.5 mg subcutaneously one time a week. sulfaSALAzine (AZULFIDINE) 500 mg tablet Take by mouth. Take 1 tab daily x 7 days, then take 1 tab twice daily x 7 days, then take 1 tab three times daily x 7 days, then take 2 tabs twice daily thereafter. Review of Systems: The remainder of the review of systems is negative. PE: 10/10/22 0959 BP: 130/80 Pulse: 76 Resp: 20 Temp: 36.4 C (97.5 F) TempSrc: Left Tympanic Weight: (!) 145.2 kg (320 lb) Gen: A&O, NAD, non-toxic appearing, Pleasant, cooperative HEENT: NT/AC, PERRLA, EOMs intact b/l, nares clear and patent b/l, pharynx without erythema, exudate or lesions. Uvula midline. MMM Neck: supple, No cervical LAD, no thyromegaly, no carotid bruits CV: RRR, normal S1 and S2, no murmurs, no gallops, no rubs, Pulses 2+ and symmetric in UE and LE b/l Lungs: normal respiratory effort, CTA b/l, no wheezing or rhonchi or rales Abd: soft, central obesity NT, ND, +BS, no hepatosplenomegaly MS: FROM all 4 extremities Neuro: CN II-XII intact b/l Skin: warm, dry, intact, No rashes or lesions on exposed skin. Foot exam: Monofilament wnl on right and left feet. No edema ASSESSMENT/PLAN: 1. Hypothyroidism, unspecified type - ICD9: 244.9, ICD10: E03.9 (primary diagnosis) - Instructed patient on importance of taking on an empty stomach either first thing in the morning or at bedtime. - continue current dose of Synthroid Stable - Behavioral intervention and - Continue current medications 2. Dyslipidemia - ICD9: 272.4, ICD10: E78.5 - Controlled - Counseled on healthy diet and regular exercise - Discussed need for and benefit of weight loss. BMI 51.65 kg/(m^2) 3. Controlled type 2 diabetes mellitus without complication, without long-term current use of insulin (HCC) - ICD9: 250.00, ICD10: E11.9 - Controlled - Improving control - Continue current medications - Blood glucose monitoring on a once daily schedule - Counseled on healthy diet and regular exercise - Discussed need for and benefit of weight loss. BMI 51.65 kg/(m^2) 4. Morbid obesity with BMI of 50.0-59.9, adult (HCC) - ICD9: 278.01, V85.43, ICD10: E66.01, Z68.43 Stable - Behavioral intervention, - PSMF, and - Eat well program Consider GLP1 such as semaglutide medication as d/w her today 5. Other osteoarthritis of spine, lumbar region - ICD9: 721.3, ICD10: M47.896 - rx for prn use, not daily use, she is aware of proper use and risks - NAPROXEN 500 MG TABLET Josh De La Torre DO To ER if develops chest pain, shortness of breath, or severe worsening of symptoms. Discussed risks, benefits, alternatives, and potential side effects of medications. Patient expressed understanding and agreed with the plan. Josh De La Torre DO [address] [place] [address] documented in this encounter [facility] 09-22-2022 Miscellaneous Notes Mychart message sent to pt notifying her that fasting labs have been placed to complete. Bina Sol Ma New lab orders placed. Joya Hernandez APRN.CNP Previous fasting labs set to 09/23/22. Pended new orders. Please refile. Maria Elena Rodriguez MA documented in this encounter [facility] 09-05-2022 Miscellaneous Notes Patient phones requesting refills as follows: Requested Prescriptions Pending Prescriptions Disp Refills levothyroxine (SYNTHROID) 100 mcg tablet 102 tablet 1 Sig: Take 1 PO daily x 6 days a week and 2 PO daily x 1 day a week FLUoxetine (PROZAC) 10 mg capsule 90 capsule 1 Sig: Take 1 capsule by mouth once daily. Add to 40 mg capsule DARIUS-04/23/22 Labs-01/17/22 NOV-10/10/22 Please review and advise. Jaz Dumont LPN documented in this encounter [facility] 08-13-2022 Note Patient Outreach (IN [facility]) JENNI MITCHELL ([id number]) 1970 F Date Time Provider Department 08/13/22 JOSH DE LA TORRE During your visit today, we recorded the following information about you: Allergies As of Date: 08/13/2022 Noted Allergy Reaction AMOXACILLIN (AMOXICILLIN) 08/17/2007 2 - Rash BEES 11/04/2004 YELLOW DYE 08/22/2010 9 - Itching Comments: In Wellbutrin SR Date Reviewed: 04/23/2022 Reviewed by: Brittany Morrissey LPN - Fully Assessed Visit Diagnosis:Encounter for screening mammogram for breast cancer [Z12.31] Order(s):[facility] SCREENING [[id number]] Order #: [id number] FUTURE Prescriptions as of 08/18/2022 - metFORMIN ER (GLUCOPHAGE XR) 500 mg 24 hr tablet Take 2 tablets by mouth twice daily with meals. - FLUoxetine (PROZAC) 40 mg capsule Take 1 capsule by mouth once daily. - FLUoxetine (PROZAC) 10 mg capsule Take 1 capsule by mouth once daily. Add to 40 mg capsule - lisinopril-hydroCHLOROthiazide (ZESTORETIC) 20-12.5 mg per tablet Take 1 tablet by mouth once daily. - semaglutide (OZEMPIC) 1 mg/dose (4 mg/3 mL) pen Inject 1 mg subcutaneously one time a week. - levothyroxine (SYNTHROID) 100 mcg tablet Take 1 PO daily x 6 days a week and 2 PO daily x 1 day a week - dulaglutide (TRULICITY) 4.5 mg/0.5 mL pen injector Inject 4.5 mg subcutaneously one time a week. - buPROPion SR (WELLBUTRIN SR) 100 mg 12 hr tablet Take 1 tablet by mouth twice daily. - sulfaSALAzine (AZULFIDINE) 500 mg tablet Take by mouth. Take 1 tab daily x 7 days, then take 1 tab twice daily x 7 days, then take 1 tab three times daily x 7 days, then take 2 tabs twice daily thereafter. - CPAP Initiate CPAP @ 12 cm of water with humidification. Mask - nasal pillow (per patient preference) optional chin strap (if indicated) , filters, tubing, humidifier and lifetime supplies. Dx 327.23 - CPAP Initiate CPAP @ 12 cm of water with humidification. Mask - nasal pillow (per patient preference) optional chin strap (if indicated) , filters, tubing, humidifier and lifetime supplies. Dx 327.23 - COMPOUNDED PRESCRIPTION 1 Units by MISCELLANEOUS route as directed. Dx, TIM, CPAP supplies including Mask, hose and straps - naproxen sodium (ALEVE) 220 mg ORAL tablet Take 1 tablet by mouth twice daily. Problem List As Of Date 08/13/2022 Noted Resolved Hypothyroidism [E03.9] 09/21/2006 Essential hypertension, benign [I10] 09/21/2006 Routine general medical examination at [facility]*07/11/2009 06/03/2010 Class: Chronic Routine gynecological examination [Z01.419] 07/11/2009 06/03/2010 Class: Chronic Family hx of colon cancer [Z80.0] 07/11/2009 PCOS (polycystic ovarian syndrome) [E28.2] 07/20/2009 Menorrhagia [N92.0] 06/05/2010 Endometrial polyp [N84.0] 06/05/2010 09/05/2010 Routine general medical examination at [facility]*07/29/2010 09/05/2010 Class: Chronic Routine gynecological examination [Z01.419] 07/29/2010 09/05/2010 Class: Chronic Depression, major, recurrent, in partial remiss*08/07/2010 Complex endometrial hyperplasia with atypia [N8*09/05/2010 Morbid obesity [E66.01] 09/05/2010 Diabetes mellitus, type 2 (HCC) [E11.9] Obstructive sleep apnea [G47.33] Restless leg syndrome [G25.81] Controlled type 2 diabetes mellitus without com*06/02/2016 Foot pain, left [M79.672] 07/07/2018 Perimenopausal disorder [N95.9] 07/07/2018 Morbid obesity with BMI of 50.0-59.9, adult (HC*07/28/2019 Uncontrolled type 2 diabetes mellitus with hype*09/25/2020 Bilateral hip pain [M25.551, M25.552] 09/25/2020 Rheumatoid arthritis with positive rheumatoid f*09/25/2020 Panic disorder [F41.0] 10/19/2021 Dyslipidemia [E78.5] 04/23/2022 Vitamin D deficiency [E55.9] 04/23/2022 Encounter Status:Closed by Piqora on 08/18/22 [facility] 08-08-2022 Miscellaneous Notes Prozac 10 mg was refilled to [facility] on 05/28/22 #90 with 1 additional refill. Should have a refill available for roller picker. Pt notified via [email or web address]. Marilyn Mustafa Ma documented in this encounter [facility] 06-16-2022 Miscellaneous Notes Patient phones requesting refills as follows: Requested Prescriptions Pending Prescriptions Disp Refills FLUoxetine (PROZAC) 40 mg capsule 90 capsule 1 Sig: Take 1 capsule by mouth once daily. DARIUS 04/23/2022 NOV 07/28/2022 Please review and advise. Consuelo Ryan LPN documented in this encounter [facility] 03-22-2023 Miscellaneous Notes Pharmacy verified in Epic Patient has been identified by name and date of : Yes Patient aware RX will be sent to pharmacy. No need to notify patient. Patient phones for refill(s): Requested Prescriptions Pending Prescriptions Disp Refills lisinopril-hydroCHLOROthiazide (ZESTORETIC) 20-12.5 mg per tablet 90 tablet 1 Sig: Take 1 tablet by mouth once daily. Date of last office visit : 04/23/2022 Date of next office visit : 07/28/2022 Last 2 Encounter Wt Readings: Date: Wt: 04/23/2022 146.1 kg (322 lb) 10/19/2021 153.5 kg (338 lb 6.4 oz) Not applicable Please advise. Nani Stephen Pss documented in this encounter [facility] 04-29-2022 Miscellaneous Notes Spoke with pt and information listed below given. Pt verbalizes understanding. Pt reports there is paperwork being faxed to you regarding the Ozempic. This is for the Ozempic assistance card. Her insurance will not cover Mounjaro. Please watch for the paper work that will be coming thru. Lenore Chavarria LPN Message left to return call. Yes she should be taking her metformin 500mg, 2 tabs twice daily with meals. Did she check to see if the Ozempic assistance card would work for her? She could also check with her insurance to see if they would cover Mounjaro. Joya Hernandez APRN.LIANG Patient calling said she could not afford the Ozempic. Advised patient to check manufacture website to see if any assistance programs she can get into. She was getting on her computer to check on this. Patient asking if she should only be taking the Metformin 500 mg two tablets twice daily? Patient said she could not get the Trulicity due to being back ordered. Or does she need to be taking something else? Please advise documented in this encounter [facility] 04-23-2022 Note HNO ID: [id number] Author: Josh De La Torre, DO Service: ? Author Type: Physician Type: Progress Notes Filed: 04/23/2022 9:11 AM Note Text: Patient presents with: Blood Sugar Problem HPI: Jenni Mitchell is a 51 year old female who presents to the office today for review of health conditions. Concerns today: Overall she is doing well. Still some chronic low and mid back pain, feels she is stable though- not interested in intervention or medications for this. Trulicity was recently changed to Ozempic due to availability of medication lacking with Trulicity. She is tolerating rx well except needle is slightly painful with injection use. Blood glucose fasting readings are so much better from 120-170s. No longer in the 200s in AM or post prandial. She is also following a low carb diet significantly. Ms. Mitchell has past history of diabetes. Since our last visit she denies excessive thirst or increased frequency of urination, chest pain or dyspnea , numbness, tingling or pain in extremities, new or unusual visual symptoms, and low sugar/hypoglycemic reactions. Depression- no. Follows a diabetic diet some of the time. She is compliant with medication(s) and is tolerating med(s) without any side effects. She reports checking her glucose on a once or twice a day schedule Patient's last HgA1C was Hemoglobin A1C (%) Date Value 01/17/2022 9.1 10/17/2021 8.9 11/22/2020 8.5 05/22/2020 8.3 Hemoglobin A1C (POCT) (%) Date Value 04/23/2022 6.8 ) Last Ophthalmology exam was within the past 12 months Ms. Mitchell reports history of hyperlipidemia. Current therapy includes diet and exercise. Denies side effects of muscle weakness or achiness. Her most recent lipid panels are reviewed. Cholesterol, Total (mg/dL) Date Value 01/17/2022 148 10/25/2019 150 Total Cholesterol, Nonfasting (mg/dL) Date Value 05/22/2020 162 HDL Cholesterol (mg/dL) Date Value 01/17/2022 37 10/25/2019 42 HDL Cholesterol, Nonfasting (mg/dL) Date Value 05/22/2020 40 LDL Cholesterol (mg/dL) Date Value 01/17/2022 86 10/25/2019 88 LDL Cholesterol, Nonfasting (mg/dL) Date Value 05/22/2020 96 Triglyceride (mg/dL) Date Value 01/17/2022 124 10/25/2019 100 Triglycerides, Nonfasting (mg/dL) Date Value 05/22/2020 130 Ms. Mitchell indicates a history of hypertension and states that she is feeling well and denies any symptoms referable to elevated blood pressure. Specifically denies headache, chest pain, palpitations, dyspnea, and peripheral edema. Patient denies any side effects of her medication(s) and is compliant with their regimen. Last 3 Encounter BP Readings: Date: BP: 04/23/2022 120/80 10/19/2021 122/84 05/15/2021 122/80 She watches her diet for sodium, low fat and low cholesterol some of the time. She does not check BP's generally. Jenni likes to exercise by walking. PAST MEDICAL HISTORY Diagnosis Date Blood clot in vein Right Leg/Superficial Depression Diabetes mellitus, type 2 (HCC) 2013 Hypertension Hypothyroid Migraine, unspecified, with intractable migraine, so stated, without mention of status migrainosus Migraine Obesity Obstructive sleep apnea 2013 PCOS (polycystic ovarian syndrome) s/p hysterectomy Restless leg syndrome SVT (supraventricular tachycardia) (HCC) ? PAST SURGICAL HISTORY Procedure Laterality Date ESSURE 06/05/2010 in One Fallopian Tube HYSTERECTOMY HX 11/13/2010 robotic hyster/BSO PAST SURGICAL HISTORY OF 1998 bilateral CTS surgery, [place] Social History Tobacco Use Smoking status: Never Smokeless tobacco: Never Vaping Use Vaping Use: Never used Substance Use Topics Alcohol use: No Drug use: No FAMILY HISTORY Problem Relation Age of Onset Asthma Mother Thyroid Mother COPD Mother smoker Diabetes Mother Diabetes Father Hypertension Father Colon Cancer Father diagnosed age 55 Coronary Artery Disease Father KS/CABG Breast Cancer Maternal Grandmother Diabetes Paternal Grandmother Diabetes Paternal Grandfather Stroke Paternal Grandfather other (anxiety) Brother Breast Cancer Paternal Aunt Allergies: ALLERGIES Allergen Reactions Amoxacillin [Amoxic* Rash Bees Yellow Dye Itching In Wellbutrin SR Current Meds: semaglutide (OZEMPIC) 1 mg/dose (4 mg/3 mL) pen Inject 1 mg subcutaneously one time a week. levothyroxine (SYNTHROID) 100 mcg tablet Take 1 PO daily x 6 days a week and 2 PO daily x 1 day a week dulaglutide (TRULICITY) 4.5 mg/0.5 mL pen injector Inject 4.5 mg subcutaneously one time a week. metFORMIN ER (GLUCOPHAGE XR) 500 mg 24 hr tablet Take 2 tablets by mouth twice daily with meals. FLUoxetine (PROZAC) 40 mg capsule Take 1 capsule by mouth once daily. lisinopril-hydroCHLOROthiazide (PRINZIDE,ZESTORETIC) 20-12.5 mg per tablet Take 1 tablet by mouth once daily. FLUoxetine (PROZAC) 10 mg capsule Take 1 capsule by mouth once daily. Add to (more content not included)... [facility] 04-23-2022 History of Present illness Narrative Patient presents with: Blood Sugar Problem HPI: Jenni Mitchell is a 51 year old female who presents to the office today for review of health conditions. Concerns today: Overall she is doing well. Still some chronic low and mid back pain, feels she is stable though- not interested in intervention or medications for this. Trulicity was recently changed to Ozempic due to availability of medication lacking with Trulicity. She is tolerating rx well except needle is slightly painful with injection use. Blood glucose fasting readings are so much better from 120-170s. No longer in the 200s in AM or post prandial. She is also following a low carb diet significantly. Ms. Mitchell has past history of diabetes. Since our last visit she denies excessive thirst or increased frequency of urination, chest pain or dyspnea , numbness, tingling or pain in extremities, new or unusual visual symptoms, and low sugar/hypoglycemic reactions. Depression- no. Follows a diabetic diet some of the time. She is compliant with medication(s) and is tolerating med(s) without any side effects. She reports checking her glucose on a once or twice a day schedule Patient's last HgA1C was Hemoglobin A1C (%) Date Value 01/17/2022 9.1 10/17/2021 8.9 11/22/2020 8.5 05/22/2020 8.3 Hemoglobin A1C (POCT) (%) Date Value 04/23/2022 6.8 ) Last Ophthalmology exam was within the past 12 months Ms. Mitchell reports history of hyperlipidemia. Current therapy includes diet and exercise. Denies side effects of muscle weakness or achiness. Her most recent lipid panels are reviewed. Cholesterol, Total (mg/dL) Date Value 01/17/2022 148 10/25/2019 150 Total Cholesterol, Nonfasting (mg/dL) Date Value 05/22/2020 162 HDL Cholesterol (mg/dL) Date Value 01/17/2022 37 10/25/2019 42 HDL Cholesterol, Nonfasting (mg/dL) Date Value 05/22/2020 40 LDL Cholesterol (mg/dL) Date Value 01/17/2022 86 10/25/2019 88 LDL Cholesterol, Nonfasting (mg/dL) Date Value 05/22/2020 96 Triglyceride (mg/dL) Date Value 01/17/2022 124 10/25/2019 100 Triglycerides, Nonfasting (mg/dL) Date Value 05/22/2020 130 Ms. Mitchell indicates a history of hypertension and states that she is feeling well and denies any symptoms referable to elevated blood pressure. Specifically denies headache, chest pain, palpitations, dyspnea, and peripheral edema. Patient denies any side effects of her medication(s) and is compliant with their regimen. Last 3 Encounter BP Readings: Date: BP: 04/23/2022 120/80 10/19/2021 122/84 05/15/2021 122/80 She watches her diet for sodium, low fat and low cholesterol some of the time. She does not check BP's generally. Jenni likes to exercise by walking. PAST MEDICAL HISTORY Diagnosis Date Blood clot in vein Right Leg/Superficial Depression Diabetes mellitus, type 2 (HCC) 2013 Hypertension Hypothyroid Migraine, unspecified, with intractable migraine, so stated, without mention of status migrainosus Migraine Obesity Obstructive sleep apnea 2013 PCOS (polycystic ovarian syndrome) s/p hysterectomy Restless leg syndrome SVT (supraventricular tachycardia) (HCC) ? PAST SURGICAL HISTORY Procedure Laterality Date ESSURE 06/05/2010 in One Fallopian Tube HYSTERECTOMY HX 11/13/2010 robotic hyster/BSO PAST SURGICAL HISTORY OF 1997 bilateral CTS surgery, [place] Social History Tobacco Use Smoking status: Never Smokeless tobacco: Never Vaping Use Vaping Use: Never used Substance Use Topics Alcohol use: No Drug use: No FAMILY HISTORY Problem Relation Age of Onset Asthma Mother Thyroid Mother COPD Mother smoker Diabetes Mother Diabetes Father Hypertension Father Colon Cancer Father diagnosed age 55 Coronary Artery Disease Father KS/CABG Breast Cancer Maternal Grandmother Diabetes Paternal Grandmother Diabetes Paternal Grandfather Stroke Paternal Grandfather other (anxiety) Brother Breast Cancer Paternal Aunt Allergies: ALLERGIES Allergen Reactions Amoxacillin [Amoxic* Rash Bees Yellow Dye Itching In Wellbutrin SR Current Meds: semaglutide (OZEMPIC) 1 mg/dose (4 mg/3 mL) pen Inject 1 mg subcutaneously one time a week. levothyroxine (SYNTHROID) 100 mcg tablet Take 1 PO daily x 6 days a week and 2 PO daily x 1 day a week dulaglutide (TRULICITY) 4.5 mg/0.5 mL pen injector Inject 4.5 mg subcutaneously one time a week. metFORMIN ER (GLUCOPHAGE XR) 500 mg 24 hr tablet Take 2 tablets by mouth twice daily with meals. FLUoxetine (PROZAC) 40 mg capsule Take 1 capsule by mouth once daily. lisinopril-hydroCHLOROthiazide (PRINZIDE,ZESTORETIC) 20-12.5 mg per tablet Take 1 tablet by mouth once daily. FLUoxetine (PROZAC) 10 mg capsule Take 1 capsule by mouth once daily. Add to 40 mg capsule buPROPion SR (WELLBUTRIN SR) 100 mg 12 hr tablet Take 1 tablet by mouth twice daily. naproxen sodium (ALEVE) 220 mg ORAL tablet Take 1 tablet by mouth twice daily. sulfaSALAzine (AZULFIDINE) 500 mg tablet Take by mouth. Take 1 tab daily x 7 days, then take 1 tab twice daily x 7 days, then take 1 tab three times daily x 7 days, then take 2 tabs twice daily thereafter. CPAP Initiate CPAP @ 12 cm of water with humidification. Mask - nasal pillow (per patient preference) optional chin strap (if indicated) , filters, tubing, humidifier and lifetime supplies. Dx 327.23 CPAP Initiate CPAP @ 12 cm of water with humidification. Mask - nasal pillow (per patient preference) optional chin strap (if indicated) , filters, tubing, humidifier and lifetime supplies. Dx 327.23 COMPOUNDED PRESCRIPTION 1 Units by MISCELLANEOUS route as directed. Dx, TIM, CPAP supplies including Mask, hose and straps Review of Systems: The remainder of the review of systems is negative. PE: 04/23/22 0814 BP: 120/80 Pulse: 80 Resp: 16 Temp: 36.1 C (97 F) TempSrc: Left Tympanic Weight: (!) 146.1 kg (322 lb) Gen: A&O, NAD, non-toxic appearing, Pleasant, cooperative HEENT: NT/AC, PERRLA, EOMs intact b/l, nares clear and patent b/l, pharynx without erythema, exudate or lesions. Uvula midline.MMM Neck: supple, No cervical LAD, no thyromegaly, no carotid bruits CV: RRR, normal S1 and S2, no murmurs, no gallops, no rubs, Pulses 2+ and symmetric in UE and LE b/l Lungs: normal respiratory effort, CTA b/l, no wheezing or rhonchi or rales MS: FROM all 4 extremities Neuro: CN II-XII intact b/l Skin: warm, dry, intact, No rashes or lesions on exposed skin. Foot exam: Monofilament normal on right and left feet. No edema ASSESSMENT/PLAN: 1. Uncontrolled type 2 diabetes mellitus with hyperglycemia (HCC) - ICD9: 250.02, ICD10: E11.65 (primary diagnosis) - Improving control - Continue current medications - Counseled on healthy diet and regular exercise - Discussed need for and benefit of weight loss. BMI 51.97 kg/(m^2) - Discussed diabetic education issues of diabetes complications and monitoring required and medication-specific side effects and monitoring - HEMOGLOBIN A1C (POC) - HGB A1C - COMP METABOLIC PANEL - VITAMIN B12 BLOOD 2. Hypothyroidism, unspecified type - ICD9: 244.9, ICD10: E03.9 - Instructed patient on importance of taking on an empty stomach either first thing in the morning or at bedtime. Weight decreasing and Stable - Behavioral intervention and - Pharmacological intervention - TSH BLD 3. Dyslipidemia - ICD9: 272.4, ICD10: E78.5 - improved control - Encouraged following a low fat, low cholesterol diet. - Discussed the benefits of regular aerobic exercise and weight loss. - Check fasting lipid panel and ALT in 12 weeks. - LIPID PANEL BASIC 4. Vitamin D deficiency - ICD9: 268.9, ICD10: E55.9 Continue supplement - VITAMIN D 25 HYDROXY 5. Morbid obesity with BMI of 50.0-59.9, adult (HCC) - ICD9: 278.01, V85.43, ICD10: E66.01, Z68.43 Weight decreasing - Behavioral intervention and - Pharmacological intervention Josh De La Torre DO To ER if develops chest pain, shortness of breath, or severe worsening of symptoms. Discussed risks, benefits, alternatives, and potential side effects of medications. Patient expressed understanding and agreed with the plan. Josh De La Torre DO [address] [place] [address] documented in this encounter [facility] 02-28-2022 Miscellaneous Notes Pt informed via [email or web address] message Mayelin David Ma The following approved medication requests have been transmitted electronically. Requested Prescriptions Signed Prescriptions Disp Refills semaglutide (OZEMPIC) 1 mg/dose (4 mg/3 mL) pen 12 Each 1 Sig: Inject 1 mg subcutaneously one time a week. Authorizing Provider: JOSH DE LA TORRE DO Pt called back and she checked with her Insurance and they will cover Ozempic.. Please send prescription to [facility]. Lenore Chavarria LPN Phoned patient and given provider's message. Patient will check with insurance and phone back to let pcp know. Will her insurance cover an alternative such as Mounjaro or Ozempic? Josh De La Torre DO Jenni Renee Hollandjerjackie is calling Josh De La Torre DO today with concern regarding the medication Trulicity is on back order and patient said the pharmacy has no ETA and the other strength the patient was on prior to this new RX is also on back order. Please call patient to advise how to handle the blood sugars that have been running high with out the Trulicity Patient has been identified by name and birthdate. Duration of symptoms: N/A Person calling: self Call patient at: at home [phone] (home) [phone] (cell) Was an appointment scheduled: No Closing statement: Results or non-symptom based questions: Thank you for calling [facility], your call will be returned within the next business day. Zabrina Caldwell [facility] Electronically signed by Zabrina Caldwell [facility] 02/26/2022 11:02 AM EST documented in this encounter [facility] 02-25-2022 Miscellaneous Notes Patient has been identified by name and date of : Yes, Provider Dr. De La Torre Date 02/25/22 Time 9:14 am Patient phones for refill(s): Requested Prescriptions Pending Prescriptions Disp Refills levothyroxine (SYNTHROID) 100 mcg tablet 102 tablet 1 Sig: Take 1 PO daily x 6 days a week and 2 PO daily x 1 day a week Date of last office visit in primary care: 10/19/21 next apt 04/23/22 Last 2 Encounter Wt Readings: Date: Wt: 10/19/2021 153.5 kg (338 lb 6.4 oz) 05/15/2021 154.2 kg (340 lb) Previous labs/tests for medication: Thyroid: TSH Date Value 10/17/2021 2.150 mIU/L 11/22/2020 2.010 uU/mL Thank you. Lenore Chavarria LPN documented in this encounter [facility] 02-19-2022 Miscellaneous Notes The following approved medication requests have been transmitted electronically. Requested Prescriptions Signed Prescriptions Disp Refills dulaglutide (TRULICITY) 4.5 mg/0.5 mL pen injector 4 Each 2 Sig: Inject 4.5 mg subcutaneously one time a week. Authorizing Provider: JOSH DE LA TORRE Ordering User: JOYA HERNANDEZ metFORMIN ER (GLUCOPHAGE XR) 500 mg 24 hr tablet 120 tablet 2 Sig: Take 2 tablets by mouth twice daily with meals. Authorizing Provider: JOSH DE LA TORRE Ordering User: JOYA HERNANDEZ APRN.CNP Pt informed, verbalized understanding. Pt reports she has been taking the metformin 2 tabs once daily for a while but is willing to increase. Please send to [facility] if okay. Mayelin David Ma We typically prescribe metformin two tabs twice daily. Is there a reason she is only doing two tabs once daily? If able I would like her to increase her metformin. I would also like her to increase her Trulicity to 4.5mg weekly. I'm sending in this rx. The following approved medication requests have been transmitted electronically. Requested Prescriptions Signed Prescriptions Disp Refills dulaglutide (TRULICITY) 4.5 mg/0.5 mL pen injector 4 Each 2 Sig: Inject 4.5 mg subcutaneously one time a week. Authorizing Provider: JOSH DE LA TORRE Ordering User: JOYA HERNANDEZ APRN.LIANG Phoned patient and went over results, notes from Dr De La Torre. Patient said she is taking her Trulicity 3 mg once weekly and Metformin 500 mg 2 pills once daily. Her fasting blood sugars have been in the 200's range since June when she had COVID. Her eye sight is more blurred and her RA is worse. Patient said she is following diet as what you had recommended she eat. Patient said what ever Dr De La Torre wants me to do with either adding another medication or increasing the Trulicity , she uses [facility] for her pharmacy. Patient said she did her lab work fasting and glucose was 219. Please advise Please inform patient that her recent a1c is up at 9.1%. is she taking her medications? What are her fasting blood glucose levels? Is she following a diabetic diet? I can adjust her trulicity dose up to 4.5 mg once a week or add additional medication for better control of glucose Josh De La Torre DO documented in this encounter [facility] 10-19-2021 History of Present illness Narrative Patient presents with: F/U 6 months Weight Loss Diabetes HPI: Jenni Mitchell is a 50 year old female who presents to the office today for review of health conditions. Concerns today: Mood, stable, taking wellbutrin and prozac, tolerating medications well without concerns. Hyperglycemia, numbers of fasting glucose have sometimes been in the 200s since having covid 19 infection in June. Trying to work on better diet and control of glucose- mostly only drinking water, trying to limit her soda and sugar drinks. BLOOD PRESSURE stable and well controlled. Hypothyroidism, taking synthroid 100 mcg daily, tolerating well. Ms. Mitchell has past history of diabetes. Since our last visit she denies excessive thirst or increased frequency of urination, chest pain or dyspnea , new or unusual visual symptoms, and low sugar/hypoglycemic reactions. Depression- yes, treated well. Follows a diabetic diet most of the time. She is compliant with medication(s) and is tolerating med(s) without any side effects. She reports checking her glucose on a twice a day schedule with sugars in the fasting 180-200s range. Patient's last HgA1C was Hemoglobin A1C (%) Date Value 10/17/2021 8.9 05/13/2021 7.1 11/22/2020 8.5 05/22/2020 8.3 ) Last Ophthalmology exam was within the past 12 months Ms. Mitchell reports history of hyperlipidemia. Current therapy includes diet and exercise. Denies side effects of muscle weakness or achiness. Her most recent lipid panels are reviewed. Cholesterol, Total (mg/dL) Date Value 10/17/2021 150 10/25/2019 150 Total Cholesterol, Nonfasting (mg/dL) Date Value 05/22/2020 162 HDL Cholesterol (mg/dL) Date Value 10/17/2021 37 10/25/2019 42 HDL Cholesterol, Nonfasting (mg/dL) Date Value 05/22/2020 40 LDL Cholesterol (mg/dL) Date Value 10/17/2021 92 10/25/2019 88 LDL Cholesterol, Nonfasting (mg/dL) Date Value 05/22/2020 96 Triglyceride (mg/dL) Date Value 10/17/2021 105 10/25/2019 100 Triglycerides, Nonfasting (mg/dL) Date Value 05/22/2020 130 Ms. Mitchell indicates a history of hypertension and states that she is feeling well and denies any symptoms referable to elevated blood pressure. Specifically denies headache, chest pain, palpitations, dyspnea, and peripheral edema. Patient denies any side effects of her medication(s) and is compliant with their regimen. Last 3 Encounter BP Readings: Date: BP: 10/19/2021 122/84 05/15/2021 122/80 12/28/2020 120/80 She watches her diet for sodium, low fat and low cholesterol some of the time. She does not check BP's generally. Jenni gets minimal exercise. PAST MEDICAL HISTORY Diagnosis Date Blood clot in vein Right Leg/Superficial Depression Diabetes mellitus, type 2 (HCC) 2013 Hypertension Hypothyroid Migraine, unspecified, with intractable migraine, so stated, without mention of status migrainosus Migraine Obesity Obstructive sleep apnea 2013 PCOS (polycystic ovarian syndrome) s/p hysterectomy Restless leg syndrome SVT (supraventricular tachycardia) (HCC) ? PAST SURGICAL HISTORY Procedure Laterality Date ESSURE 06/05/2010 in One Fallopian Tube HYSTERECTOMY HX 11/13/2010 robotic hyster/BSO PAST SURGICAL HISTORY OF 1998 bilateral CTS surgery, [place] Social History Tobacco Use Smoking status: Never Smokeless tobacco: Never Vaping Use Vaping Use: Never used Substance Use Topics Alcohol use: No Drug use: No FAMILY HISTORY Problem Relation Age of Onset Asthma Mother Thyroid Mother COPD Mother smoker Diabetes Mother Diabetes Father Hypertension Father Colon Cancer Father diagnosed age 55 Coronary Artery Disease Father KS/CABG Breast Cancer Maternal Grandmother Diabetes Paternal Grandmother Diabetes Paternal Grandfather Stroke Paternal Grandfather other (anxiety) Brother Breast Cancer Paternal Aunt Allergies: ALLERGIES Allergen Reactions Amoxacillin [Amoxic* Rash Bees Yellow Dye Itching In Wellbutrin SR Current Meds: metFORMIN ER (GLUCOPHAGE XR) 500 mg 24 hr tablet Take 2 tablets by mouth daily with lunch. FLUoxetine (PROZAC) 10 mg capsule Take 1 capsule by mouth once daily. Add to 40 mg capsule levothyroxine (SYNTHROID) 100 mcg tablet Take 1 PO daily x 6 days a week and 2 PO daily x 1 day a week FLUoxetine HCl (PROZAC) 40 mg capsule Take 1 capsule by mouth once daily. dulaglutide (TRULICITY) 1.5 mg/0.5 mL pen injector Inject 1.5 mg subcutaneously one time a week. Inject once per week. Discard Pen After lisinopril-hydroCHLOROthiazide (PRINZIDE,ZESTORETIC) 20-12.5 mg per tablet Take 1 tablet by mouth once daily. CPAP Initiate CPAP @ 12 cm of water with humidification. Mask - nasal pillow (per patient preference) optional chin strap (if indicated) , filters, tubing, humidifier and lifetime supplies. Dx 327.23 CPAP Initiate CPAP @ 12 cm of water with humidification. Mask - nasal pillow (per patient preference) optional chin strap (if indicated) , filters, tubing, humidifier and lifetime supplies. Dx 327.23 COMPOUNDED PRESCRIPTION 1 Units by MISCELLANEOUS route as directed. Dx, TIM, CPAP supplies including Mask, hose and straps buPROPion SR (WELLBUTRIN SR) 100 mg 12 hr tablet Take 1 tablet by mouth twice daily. sulfaSALAzine (AZULFIDINE) 500 mg tablet Take by mouth. Take 1 tab daily x 7 days, then take 1 tab twice daily x 7 days, then take 1 tab three times daily x 7 days, then take 2 tabs twice daily thereafter. naproxen sodium (ALEVE) 220 mg ORAL tablet Take 1 tablet by mouth twice daily. Review of Systems: The remainder of the review of systems is negative. PE: 10/19/21826 BP: 122/84 BP Site: Left Arm BP Position: Sitting BP Cuff Size: Large Adult Pulse: 80 SpO2: 95% Weight: (!) 153.5 kg (338 lb 6.4 oz) Gen: A&O, NAD, non-toxic appearing, Pleasant, cooperative HEENT: NT/AC, PERRLA, EOMs intact b/l, nares clear and patent b/l, pharynx without erythema, exudate or lesions. MMM, Uvula midline. EACs without erythema or debris. TMs pearly cruz with intact landmarks b/l. Neck: supple, No cervical LAD, no thyromegaly, no carotid bruits CV: RRR, normal S1 and S2, no murmurs, no gallops, no rubs, Pulses 2+ and symmetric in UE and LE b/l Lungs: normal respiratory effort, CTA b/l, no wheezing or rhonchi or rales Abd: soft, obese, NT, ND, +BS, no hepatosplenomegaly MS: FROM all 4 extremities Neuro: CN II-XII intact b/l, strength 5/5 b/l UE and LE, DTRs 2/4 UE and LE, sensation intact. Skin: warm, dry, intact, No rashes or lesions on exposed skin. Foot exam: Monofilament wnl on right and left feet. No edema, normal pulses ASSESSMENT/PLAN: 1. Uncontrolled type 2 diabetes mellitus with hyperglycemia (HCC) - ICD9: 250.02, ICD10: E11.65 (primary diagnosis) uncontrolled - Increase Trulicity - Encouraged regular aerobic exercise and weight loss - BP goal of <130/80 - LDL goal of <100 - DULAGLUTIDE 3 MG/0.5 ML SUBCUTANEOUS PEN INJECTOR - HGB A1C - COMP METABOLIC PANEL - CBC 2. Depression, major, recurrent, in partial remission (HCC) - ICD9: 296.35, ICD10: F33.41 - stable - FLUOXETINE 10 MG CAPSULE 3. Panic disorder - ICD9: 300.01, ICD10: F41.0 stable - FLUOXETINE 10 MG CAPSULE 4. Hypothyroidism, unspecified type - ICD9: 244.9, ICD10: E03.9 - Instructed patient on importance of taking on an empty stomach either first thing in the morning or at bedtime. - continue current dose of Synthroid Stable - Behavioral intervention and - Continue current medications 5. Dyslipidemia - ICD9: 272.4, ICD10: E78.5 - suboptimal control - Continue current medication. - Encouraged following a low fat, low cholesterol diet. - Discussed the benefits of regular aerobic exercise and weight loss. - LIPID PANEL BASIC 6. Obstructive sleep apnea - ICD9: 327.23, ICD10: G47.33 - continue CPAP Josh De La Torre DO To ER if develops chest pain, shortness of breath, or severe worsening of symptoms. Discussed risks, benefits, alternatives, and potential side effects of medications. Patient expressed understanding and agreed with the plan. Josh De La Torre DO [address] [place] [address] documented in this encounter [facility] 10-16-2021 Miscellaneous Notes Patient notified and verbalized understanding Maria Elena Evans Cma Yes, please have her complete fasting labs as ordered. Please inform her Josh De La Torre DO Pt calling and states she has an apt with you on 10/19/21. Checking to see if you need her to do any blood work before apt. Please advise pt. Lenore Chavarria LPN documented in this encounter [facility] 10-08-2021 Miscellaneous Notes Pt notified via [employer] that Prozac 10 mg was refilled on 08/26/21 #90 with 1 refill to [facility]. documented in this encounter [facility] 09-16-2021 Miscellaneous Notes Last office visit: 05/15/21 F/u scheduled: 10/23/21 Marilyn Mustafa Ma documented in this encounter [facility] 08-26-2021 Miscellaneous Notes darius--05/15/21 Next -- 10/23/21 Last refill-- 05/15/21 90 With 0 refills Last labs-- 05/15/21 Last office visit 05/15/2021. documented in this encounter [facility] 08-21-2021 Miscellaneous Notes Patient phones requesting refills as follows: Pending Prescriptions Disp Refills LEVOTHYROXINE 100 MCG TABLET 102 tablet 1 Sig: Take 1 PO daily x 6 days a week and 2 PO daily x 1 day a week DELMI: No DARIUS-05/15/21 Labs-05/13/21 NOV-10/23/21 med filled 02/22/21 Please review and advise. Jaz Dumont LPN documented in this encounter [facility] 07-01-2021 Miscellaneous Notes Letter faxed to [phone] [place] per patients request. Brittany Morrissey LPN Letter reviewed and signed Josh De La Torre DO Ok for letters requested as below. Please compose and print for me to review and sign Josh De La Torre DO Pt calls to report that she needs the following letters: Letter stating pt cannot wear a N95 mask because of her anxiety. Letter stating pt cannot do patient care because of arthritis. Pt reports these letters have been written for her before and just need current date. Anna Scott LPN documented in this encounter [facility] 05-02-2021 Miscellaneous Notes Patient has been identified by name and date of : Yes Last office visit in this department: 12/28/2020 RX INSTRUCTIONS: Patient aware RX will be sent to pharmacy. No need to notify patient. Patient phones requesting refills as follows: Pending Prescriptions Disp Refills LISINOPRIL 20 MG-HYDROCHLOROTHIAZIDE 12.5 MG TABLET 90 tablet 1 Sig: Take 1 tablet by mouth once daily. DELMI: No Please review and advise. Angelika Blake documented in this encounter [facility] documented as of this encounter (statuses as of 05/03/2021) [facility] History of Past illness Narrative* Problem Noted Date Resolved Date Routine general medical exam ination at a health care facility 07/29/2010 09/05/2010 Overview: (formal transfer physical due -- from Dr. Morrow 2009) Routine gynecological examination 07/29/2010 09/05/2010 Overview: [facility] [place] Endometrial polyp 06/05/2010 09/05/2010 Routine general medical exam ination at a health care facility 07/11/2009 06/03/2010 Overview: 07/11/2009, from Dr. Morrow Routine gynecological examination 07/11/2009 06/03/2010 Overview: [facility], [facility] [place] documented as of this encounter (statuses as of 07/01/2021) [facility] History of Past illness Narrative* Problem Noted Date Resolved Date Routine general medical exam ination at a health care facility 07/29/2010 09/05/2010 Overview: (formal transfer physical due -- from Dr. Morrow 2009) Routine gynecological examination 07/29/2010 09/05/2010 Overview: [facility], [facility] [place] Endometrial polyp 06/05/2010 09/05/2010 Routine general medical exam ination at a health care facility 07/11/2009 06/03/2010 Overview: 07/11/2009, from Dr. Morrow Routine gynecological examination 07/11/2009 06/03/2010 Overview: [facility], [facility] [place] documented as of this encounter (statuses as of 08/21/2021) [facility] History of Past illness Narrative* Problem Noted Date Resolved Date Routine general medical exam ination at a health care facility 07/29/2010 09/05/2010 Overview: (formal transfer physical due -- from Dr. Morrow 2009) Routine gynecological examination 07/29/2010 09/05/2010 Overview: [facility], [facility] [place] Endometrial polyp 06/05/2010 09/05/2010 Routine general medical exam ination at a health care facility 07/11/2009 06/03/2010 Overview: 07/11/2009, from Dr. Morrow Routine gynecological examination 07/11/2009 06/03/2010 Overview: [facility] [place] documented as of this encounter (statuses as of 08/26/2021) [facility] History of Past illness Narrative* Problem Noted Date Resolved Date Routine general medical exam ination at a health care facility 07/29/2010 09/05/2010 Overview: (formal transfer physical due -- from Dr. Morrow 2009) Routine gynecological examination 07/29/2010 09/05/2010 Overview: [facility], [facility] [place] Endometrial polyp 06/05/2010 09/05/2010 Routine general medical exam ination at a health care facility 07/11/2009 06/03/2010 Overview: 07/11/2009, from Dr. Morrow Routine gynecological examination 07/11/2009 06/03/2010 Overview: [facility] documented as of this encounter (statuses as of 09/02/2021) [facility] of Past illness Narrative* Problem Noted Date Resolved Date Routine general medical exam ination at a health care facility 07/29/2010 09/05/2010 Overview: (formal transfer physical due -- from Dr. Morrow 2009) Routine gynecological examination 07/29/2010 09/05/2010 Overview: [facility], [facility] Endometrial polyp 06/05/2010 09/05/2010 Routine general medical exam ination at a health care facility 07/11/2009 06/03/2010 Overview: 07/11/2009, from Dr. Morrow Routine gynecological examination 07/11/2009 06/03/2010 Overview: [facility], [facility] documented as of this encounter (statuses as of 09/16/2021) [facility] History of Past illness Narrative* Problem Noted Date Resolved Date Routine general medical exam ination at a health care facility 07/29/2010 09/05/2010 Overview: (formal transfer physical due -- from Dr. Morrow 2009) Routine gynecological examination 07/29/2010 09/05/2010 Overview: [facility], [facility] [place] Endometrial polyp 06/05/2010 09/05/2010 Routine general medical exam ination at a health care facility 07/11/2009 06/03/2010 Overview: 07/11/2009, from Dr. Morrow Routine gynecological examination 07/11/2009 06/03/2010 Overview: [facility], [facility] [place] documented as of this encounter (statuses as of 10/08/2021) [facility] of Past illness Narrative* Problem Noted Date Resolved Date Routine general medical exam ination at a health care facility 07/29/2010 09/05/2010 Overview: (formal transfer physical due -- from Dr. Morrow 2009) Routine gynecological examination 07/29/2010 09/05/2010 Overview: [facility], [facility] [place] Endometrial polyp 06/05/2010 09/05/2010 Routine general medical exam ination at a health care facility 07/11/2009 06/03/2010 Overview: 07/11/2009, from Dr. Morrow Routine gynecological examination 07/11/2009 06/03/2010 Overview: [facility], [facility] [place] documented as of this encounter (statuses as of 10/16/2021) [facility] of Past illness Narrative* Problem Noted Date Resolved Date Routine general medical exam ination at a health care facility 07/29/2010 09/05/2010 Overview: (formal transfer physical due -- from Dr. Morrow 2009) Routine gynecological examination 07/29/2010 09/05/2010 Overview: [facility], [facility] [place] Endometrial polyp 06/05/2010 09/05/2010 Routine general medical exam ination at a health care facility 07/11/2009 06/03/2010 Overview: 07/11/2009, from Dr. Morrow Routine gynecological examination 07/11/2009 06/03/2010 Overview: [facility], [facility] documented as of this encounter (statuses as of 10/19/2021) [facility] of Past illness Narrative* Problem Noted Date Resolved Date Routine general medical exam ination at a health care facility 07/29/2010 09/05/2010 Overview: (formal transfer physical due -- from Dr. Morrow 2009) Routine gynecological examination 07/29/2010 09/05/2010 Overview: [facility], [facility] [place] Endometrial polyp 06/05/2010 09/05/2010 Routine general medical exam ination at a health care facility 07/11/2009 06/03/2010 Overview: 07/11/2009, from Dr. Morrow Routine gynecological examination 07/11/2009 06/03/2010 Overview: [facility] documented as of this encounter (statuses as of 02/26/2022) [facility] of [facility] Narrative* Problem Noted Date Resolved Date Routine general medical exam ination at a health care facility 07/29/2010 09/05/2010 Overview: (formal transfer physical due -- from Dr. Morrow 2009) Routine gynecological examination 07/29/2010 09/05/2010 Overview: [facility], [facility] [place] Endometrial polyp 06/05/2010 09/05/2010 Routine general medical exam ination at a health care facility 07/11/2009 06/03/2010 Overview: 07/11/2009, from Dr. Morrow Routine gynecological examination 07/11/2009 06/03/2010 Overview: [facility] documented as of this encounter (statuses as of 03/07/2022) [facility] of [facility] Narrative* Problem Noted Date Resolved Date Routine general medical exam ination at a health care facility 07/29/2010 09/05/2010 Overview: (formal transfer physical due -- from Dr. Morrow 2009) Routine gynecological examination 07/29/2010 09/05/2010 Overview: [facility], [facility] [place] Endometrial polyp 06/05/2010 09/05/2010 Routine general medical exam ination at a health care facility 07/11/2009 06/03/2010 Overview: 07/11/2009, from Dr. Morrow Routine gynecological examination 07/11/2009 06/03/2010 Overview: [facility], [facility] [place] documented as of this encounter (statuses as of 04/13/2022) [facility] of [facility] illness Narrative* Problem Noted Date Resolved Date Routine general medical exam ination at a health care facility 07/29/2010 09/05/2010 Overview: (formal transfer physical due -- from Dr. Morrow 2009) Routine gynecological examination 07/29/2010 09/05/2010 Overview: [facility] [place] Endometrial polyp 06/05/2010 09/05/2010 Routine general medical exam ination at a health care facility 07/11/2009 06/03/2010 Overview: 07/11/2009, from Dr. Morrow Routine gynecological examination 07/11/2009 06/03/2010 Overview: [facility], [facility] documented as of this encounter (statuses as of 04/23/2022) [facility] of [facility] Narrative* Problem Noted Date Resolved Date Routine general medical exam ination at a health care facility 07/29/2010 09/05/2010 Overview: (formal transfer physical due -- from Dr. Morrow 2009) Routine gynecological examination 07/29/2010 09/05/2010 Overview: [facility], [facility] [place] Endometrial polyp 06/05/2010 09/05/2010 Routine general medical exam ination at a health care facility 07/11/2009 06/03/2010 Overview: 07/11/2009, from Dr. Morrow Routine gynecological examination 07/11/2009 06/03/2010 Overview: [facility], [facility] documented as of this encounter (statuses as of 04/30/2022) [facility] of [facility] Narrative* Problem Noted Date Resolved Date Routine general medical exam ination at a health care facility 07/29/2010 09/05/2010 Overview: (formal transfer physical due -- from Dr. Morrow 2009) Routine gynecological examination 07/29/2010 09/05/2010 Overview: [facility], [facility] [place] Endometrial polyp 06/05/2010 09/05/2010 Routine general medical exam ination at a health care facility 07/11/2009 06/03/2010 Overview: 07/11/2009, from Dr. Morrow Routine gynecological examination 07/11/2009 06/03/2010 Overview: [facility], [facility] [place] documented as of this encounter (statuses as of 05/07/2022) [facility] of Past illness Narrative* Problem Noted Date Resolved Date Routine general medical exam ination at a health care facility 07/29/2010 09/05/2010 Overview: (formal transfer physical due -- from Dr. Morrow 2009) Routine gynecological examination 07/29/2010 09/05/2010 Overview: [facility], [facility] [place] Endometrial polyp 06/05/2010 09/05/2010 Routine general medical exam ination at a health care facility 07/11/2009 06/03/2010 Overview: 07/11/2009, from Dr. Morrow Routine gynecological examination 07/11/2009 06/03/2010 Overview: [facility] [place] documented as of this encounter (statuses as of 06/16/2022) [facility] History of Past illness Narrative* Problem Noted Date Resolved Date Routine general medical exam ination at a health care facility 07/29/2010 09/05/2010 Overview: (formal transfer physical due -- from Dr. Morrow 2009) Routine gynecological examination 07/29/2010 09/05/2010 Overview: [facility], [facility] Endometrial polyp 06/05/2010 09/05/2010 Routine general medical exam ination at a health care facility 07/11/2009 06/03/2010 Overview: 07/11/2009, from Dr. Morrow Routine gynecological examination 07/11/2009 06/03/2010 Overview: [facility], [facility] documented as of this encounter (statuses as of 08/08/2022) [facility] History of Past illness Narrative* Problem Noted Date Diagnosed Date Resolved Date Routine general medical exam ination at a health care facility 07/29/2010 09/05/2010 Overview: (formal transfer physical due -- from Dr. Morrow 2009) Routine gynecological examination 07/29/2010 09/05/2010 Overview: [facility], [facility] Endometrial polyp 06/05/2010 09/05/2010 Routine general medical exam ination at a health care facility 07/11/2009 06/03/2010 Overview: 07/11/2009, from Dr. Morrow Routine gynecological examination 07/11/2009 06/03/2010 Overview: [facility], [facility] documented as of this encounter (statuses as of 08/18/2022) [facility] History of Past illness Narrative* Problem Noted Date Diagnosed Date Resolved Date Routine general medical exam ination at a health care facility 07/29/2010 09/05/2010 Overview: (formal transfer physical due -- from Dr. Morrow 2009) Routine gynecological examination 07/29/2010 09/05/2010 Overview: [facility], [facility] Endometrial polyp 06/05/2010 09/05/2010 Routine general medical exam ination at a health care facility 07/11/2009 06/03/2010 Overview: 07/11/2009, from Dr. Morrow Routine gynecological examination 07/11/2009 06/03/2010 Overview: [facility], [facility] documented as of this encounter (statuses as of 09/06/2022) [facility] History of Past illness Narrative* Problem Noted Date Diagnosed Date Resolved Date Routine general medical exam ination at a health care facility 07/29/2010 09/05/2010 Overview: (formal transfer physical due -- from Dr. Morrow 2009) Routine gynecological examination 07/29/2010 09/05/2010 Overview: [facility], [facility] Endometrial polyp 06/05/2010 09/05/2010 Routine general medical exam ination at a health care facility 07/11/2009 06/03/2010 Overview: 07/11/2009, from Dr. Morrow Routine gynecological examination 07/11/2009 06/03/2010 Overview: [facility], [facility] documented as of this encounter (statuses as of 09/22/2022) [facility] History of Past illness Narrative* Problem Noted Date Diagnosed Date Resolved Date Routine general medical exam ination at a health care facility 07/29/2010 09/05/2010 Overview: (formal transfer physical due -- from Dr. Morrow 2009) Routine gynecological examination 07/29/2010 09/05/2010 Overview: [facility], [facility] Endometrial polyp 06/05/2010 09/05/2010 Routine general medical exam ination at a health care facility 07/11/2009 06/03/2010 Overview: 07/11/2009, from Dr. Morrow Routine gynecological examination 07/11/2009 06/03/2010 Overview: [facility], [facility] documented as of this encounter (statuses as of 10/11/2022) [facility] History of Past illness Narrative* Problem Noted Date Diagnosed Date Resolved Date Routine general medical exam ination at a health care facility 07/29/2010 09/05/2010 Overview: (formal transfer physical due -- from Dr. Morrow 2009) Routine gynecological examination 07/29/2010 09/05/2010 Overview: [facility], [facility] [place] Endometrial polyp 06/05/2010 09/05/2010 Routine general medical exam ination at a health care facility 07/11/2009 06/03/2010 Overview: 07/11/2009, from Dr. Morrow Routine gynecological examination 07/11/2009 06/03/2010 Overview: [facility], [facility] documented as of this encounter (statuses as of 12/11/2022) [facility] History of Past illness Narrative* Problem Noted Date Diagnosed Date Resolved Date Routine general medical exam ination at a health care facility 07/29/2010 09/05/2010 Overview: (formal transfer physical due -- from Dr. Morrow 2009) Routine gynecological examination 07/29/2010 09/05/2010 Overview: [facility], [facility] Endometrial polyp 06/05/2010 09/05/2010 Routine general medical exam ination at a health care facility 07/11/2009 06/03/2010 Overview: 07/11/2009, from Dr. Morrow Routine gynecological examination 07/11/2009 06/03/2010 Overview: [facility] documented as of this encounter (statuses as of 12/24/2022) [facility] [place] [facility] Diagnosis Essential hypertension, benign [facility] encounter [facility] [place] [facility]* Diagnosis Hypothyroidism, unspecified type documented in this encounter [facility] [place] [facility]* Diagnosis Depression, major, recurrent, in partial remission (HCC) Major depressive disorder, recurrent episode, in partial or unspecified remission Panic disorder Panic disorder without agoraphobia documented in this encounter [facility] [place] [facility]* Diagnosis Encounter for screening mammogram for breast cancer documented in this encounter [facility]* Diagnosis Controlled type 2 diabetes mellitus without complication, without long-term current use of insulin (HCC) documented in this encounter [facility] [place] [facility]* Diagnosis Depression, major, recurrent, in partial remission (HCC) Major depressive disorder, recurrent episode, in partial or unspecified remission Panic disorder Panic disorder without agoraphobia [facility] encounter [facility] [place] [facility]* Diagnosis Controlled type 2 diabetes mellitus without complication, without long-term current use of insulin (HCC)- Primary Hypothyroidism, unspecified type Dyslipidemia Other and unspecified hyperlipidemia documented in this encounter [facility] [place] [facility]* Diagnosis Uncontrolled type 2 diabetes mellitus with hyperglycemia (HCC)- Primary Depression, major, recurrent, in partial remission (HCC) Major depressive disorder, recurrent episode, in partial or unspecified remission Panic disorder Panic disorder without agoraphobia Hypothyroidism, unspecified type Dyslipidemia Other and unspecified hyperlipidemia Obstructive sleep apnea Obstructive sleep apnea (adult) (pediatric) documented in this encounter [facility] [place] [facility]* Diagnosis Hypothyroidism, unspecified type documented in this encounter [facility] [place] [facility]* Diagnosis Uncontrolled type 2 diabetes mellitus with hyperglycemia (HCC)- Primary Controlled type 2 diabetes mellitus without complication, without long-term current use of insulin (HCC) documented in this encounter [facility] [place] [facility]* Diagnosis Uncontrolled type 2 diabetes mellitus with hyperglycemia (HCC)- Primary Hypothyroidism, unspecified type Dyslipidemia Other and unspecified hyperlipidemia Vitamin D deficiency Unspecified vitamin D deficiency Morbid obesity with BMI of 50.0-59.9, adult (HCC) Morbid obesity documented in this encounter [facility] note* Diagnosis Essential hypertension, benign documented in this encounter [facility] note* Diagnosis Hypothyroidism, unspecified type Depression, major, recurrent, in partial remission (HCC) Major depressive disorder, recurrent episode, in partial or unspecified remission Panic disorder Panic disorder without agoraphobia documented in this encounter [facility] note* Diagnosis Depression, major, recurrent, in partial remission (HCC) Major depressive disorder, recurrent episode, in partial or unspecified remission Panic disorder Panic disorder without agoraphobia documented in this encounter [facility] note* Diagnosis Encounter for screening mammogram for breast cancer documented in this encounter [facility] note* Diagnosis Hypothyroidism, unspecified type Depression, major, recurrent, in partial remission (HCC) Major depressive disorder, recurrent episode, in partial or unspecified remission Panic disorder Panic disorder without agoraphobia documented in this encounter [facility] note* Diagnosis Hypothyroidism, unspecified type- Primary Dyslipidemia Other and unspecified hyperlipidemia Uncontrolled type 2 diabetes mellitus with hyperglycemia (HCC) documented in this encounter [facility] note* Diagnosis Hypothyroidism, unspecified type- Primary Dyslipidemia Other and unspecified hyperlipidemia Controlled type 2 diabetes mellitus without complication, without long-term current use of insulin (HCC) Morbid obesity with BMI of 50.0-59.9, adult (HCC) Morbid obesity Other osteoarthritis of spine, lumbar region documented in this encounter [facility] note* Diagnosis Depression, major, recurrent, in partial remission (HCC) Major depressive disorder, recurrent episode, in partial or unspecified remission Panic disorder Panic disorder without agoraphobia documented in this encounter [facility] for referral (narrative)* Diagnostic Procedure Only (Routine) - Pending Review Specialty Diagnoses / Procedures Referred By Jack t Referred To Contact [facility] Diagnoses Encounter for screening mammogram for breast cancer Procedures AJ SCREENING SCREENING MAMMOGRAPHY BI 2-VIEW BREAST INC Josh Simon, DO [address] [place] [address] [facility] [address] [place] [address] Referral ID Status Reason Start Date Expiration Date Visits Requested Visits Authorized [id number] Pending Review Auto-Generat ed Referral 08/28/2021 09/27/2022 1 1 [facility] Diagnostic Procedure Only (Routine) - Pending Review Specialty Diagnoses / Procedures Referred By Contferdinand t Referred To Contact [facility] Diagnoses Encounter for screening mammogram for breast cancer Procedures AJ SCREENING SCREENING MAMMOGRAPHY BI 2-VIEW BREAST INC CAD Josh De La Torre DO [address] [place] [address] [facility] [address] [place] [address] Referral ID Status Reason Start Date Expiration Date Visits Requested Visits Authorized [id number] Pending Review Auto-Generat ed Referral 08/13/2022 09/12/2023 1 1 [facility] Summary Purpose Family History No Family History Records Found Advance Directives No Advanced Directives Records Found Additional Source Comments Source Comments (unrecognize d section and content) In the event this informatio n is protected by the Federal Confidentiality of Alcohol and Drug Abuse Patient Records regulations: The Federal rules restrict any use of the information to criminally investigate or prosecute any alcohol or drug abuse patient.[facility] the event this information is protected by the Federal Confidentiality of Alcohol and Drug Abuse Patient Records regulations: The Federal rules restrict any use of the information to criminally investigate or prosecute any alcohol or drug abuse patient.[facility] the event this information is protected by the Federal Confidentiality of Alcohol and Drug Abuse Patient Records regulations: The Federal rules restrict any use of the information to criminally investigate or prosecute any alcohol or drug abuse patient.[facility] the event this information is protected by the Federal Confidentiality of Alcohol and Drug Abuse Patient Records regulations: The Federal rules restrict any use of the information to criminally investigate or prosecute any alcohol or drug abuse patient.[facility] the event this information is protected by the Federal Confidentiality of Alcohol and Drug Abuse Patient Records regulations: The Federal rules restrict any use of the information to criminally investigate or prosecute any alcohol or drug abuse patient.[facility] the event this information is protected by the Federal Confidentiality of Alcohol and Drug Abuse Patient Records regulations: The Federal rules restrict any use of the information to criminally investigate or prosecute any alcohol or drug abuse patient.[facility] the event this information is protected by the Federal Confidentiality of Alcohol and Drug Abuse Patient Records regulations: The Federal rules restrict any use of the information to criminally investigate or prosecute any alcohol or drug abuse patient.[facility] the event this information is protected by the Federal Confidentiality of Alcohol and Drug Abuse Patient Records regulations: The Federal rules restrict any use of the information to criminally investigate or prosecute any alcohol or drug abuse patient.[facility] the event this information is protected by the Federal Confidentiality of Alcohol and Drug Abuse Patient Records regulations: The Federal rules restrict any use of the information to criminally investigate or prosecute any alcohol or drug abuse patient.[facility] the event this information is protected by the Federal Confidentiality of Alcohol and Drug Abuse Patient Records regulations: The Federal rules restrict any use of the information to criminally investigate or prosecute any alcohol or drug abuse patient.[facility] the event this information is protected by the Federal Confidentiality of Alcohol and Drug Abuse Patient Records regulations: The Federal rules restrict any use of the information to criminally investigate or prosecute any alcohol or drug abuse patient.[facility] the event this information is protected by the Federal Confidentiality of Alcohol and Drug Abuse Patient Records regulations: The Federal rules restrict any use of the information to criminally investigate or prosecute any alcohol or drug abuse patient.[facility] the event this information is protected by the Federal Confidentiality of Alcohol and Drug Abuse Patient Records regulations: The Federal rules restrict any use of the information to criminally investigate or prosecute any alcohol or drug abuse patient.[facility] the event this information is protected by the Federal Confidentiality of Alcohol and Drug Abuse Patient Records regulations: The Federal rules restrict any use of the information to criminally investigate or prosecute any alcohol or drug abuse patient.[facility]In the event this information is protected by the Federal Confidentiality of Alcohol and Drug Abuse Patient Records regulations: The Federal rules restrict any use of the information to criminally investigate or prosecute any alcohol or drug abuse patient.[facility]In the event this information is protected by the Federal Confidentiality of Alcohol and Drug Abuse Patient Records regulations: The Federal rules restrict any use of the information to criminally investigate or prosecute any alcohol or drug abuse patient.[facility] the event this information is protected by the Federal Confidentiality of Alcohol and Drug Abuse Patient Records regulations: The Federal rules restrict any use of the information to criminally investigate or prosecute any alcohol or drug abuse patient.[facility] the event this information is protected by the Federal Confidentiality of Alcohol and Drug Abuse Patient Records regulations: The Federal rules restrict any use of the information to criminally investigate or prosecute any alcohol or drug abuse patient.[facility] the event this information is protected by the Federal Confidentiality of Alcohol and Drug Abuse Patient Records regulations: The Federal rules restrict any use of the information to criminally investigate or prosecute any alcohol or drug abuse patient.[facility] the event this information is protected by the Federal Confidentiality of Alcohol and Drug Abuse Patient Records regulations: The Federal rules restrict any use of the information to criminally investigate or prosecute any alcohol or drug abuse patient.[facility]In the event this information is protected by the Federal Confidentiality of Alcohol and Drug Abuse Patient Records regulations: The Federal rules restrict any use of the information to criminally investigate or prosecute any alcohol or drug abuse patient.[facility]In the event this information is protected by the Federal Confidentiality of Alcohol and Drug Abuse Patient Records regulations: The Federal rules restrict any use of the information to criminally investigate or prosecute any alcohol or drug abuse patient.[facility]In the event this information is protected by the Federal Confidentiality of Alcohol and Drug Abuse Patient Records regulations: The Federal rules restrict any use of the information to criminally investigate or prosecute any alcohol or drug abuse patient.[facility] Reason for Visit (unrecogniz ed section and content) Reason Comments Letter Reason Onset Date Comments Refill Request 08/20/2021 Reason Onset Date Comments Refill Request 08/26/2021 Reason Onset Date Comments Refill Request 09/15/2021 Reason Onset Date Comments Refill Request 10/08/2021 Reason Comments requesting lab orders Reason Comments F/U 6 months Weight Loss Diabetes Reason Onset Date Comments Refill Request 02/25/2022 Reason Comments Medication Problem Reason Comments Results Reason Comments Blood Sugar Problem Reason Onset Date Comments Refill Request 04/30/2022 Reason Comments Medication Question Reason Onset Date Comments Refill Request 06/14/2022 Reason Onset Date Comments Refill Request 08/07/2022 Reason Onset Date Comments Refill Request 09/05/2022 Reason Comments F/U 3 Month Reason Onset Date Comments Refill Request 12/10/2022 Reason Comments Patient Question [facility] Care Teams (unrecognized sec tion and content) Commercial Singer Relationship Specialty Start Date End Date Josh De La Torre, DO [address] [place] [address] PCP - General Family Practice 01/17/15 Commercial Singer Relationship Specialty Start Date End Date Josh De La Torre, DO [address] [place] [address] PCP - General Family Practice 01/17/15 Commercial Singer Relationship Specialty Start Date End Date Josh De La Torre, DO [address] [place] [address] PCP - General Family Practice 01/17/15 Commercial Singer Relationship Specialty Start Date End Date Josh De La Torre, DO [address] [place] [address] PCP - General Family Practice 01/17/15 Commercial Singer Relationship Specialty Start Date End Date Josh De La Torre, DO [address] [place] [address] PCP - General Family Practice 01/17/15 Commercial Singer Relationship Specialty Start Date End Date Josh De La Torre, DO [address] [place] [address] PCP - General Family Practice 01/17/15 Commercial Singer Relationship Specialty Start Date End Date Josh De La Torre, DO [address] [place] [address] PCP - General Family Medicine 01/17/15 Commercial Singer Relationship Specialty Start Date End Date Josh De La Torre, DO [address] [place] [address] PCP - General Family Medicine 01/17/15 Commercial Singer Relationship Specialty Start Date End Date Josh De La Torre, DO [address] [place] [address] PCP - General Family Medicine 01/17/15 Commercial Singer Relationship Specialty Start Date End Date Josh De La Torre, DO [address] [place] [address] PCP - General Family Medicine 01/17/15 Commercial Singer Relationship Specialty Start Date End Date Josh De La Torre DO [address] [place] [address] PCP - General Family Medicine 01/17/15 Commercial Singer Relationship Specialty Start Date End Date Josh De La Torre DO [address] [place] [address] PCP - General Family Medicine 01/17/15 Commercial Singer Relationship Specialty Start Date End Date Josh De La Torre DO [address] [place] [address] PCP - General Family Medicine 01/17/15 Commercial Singer Relationship Specialty Start Date End Date Josh De La Torre DO [address] [place] [address] PCP - General Family Medicine 01/17/15 Commercial Singer Relationship Specialty Start Date End Date Josh De La Torre DO [address] [place] [address] PCP - General Family Medicine 01/17/15 Commercial Singer Relationship Specialty Start Date End Date Josh De La Torre DO [address] [place] [address] PCP - General Family Medicine 01/17/15 Commercial Singer Relationship Specialty Start Date End Date Josh De La Torre DO [address] [place] [address] PCP - General Family Medicine 01/17/15 Commercial Singer Relationship Specialty Start Date End Date Josh De La Torre DO [address] [place] [address] PCP - General Family Medicine 01/17/15 INFORMATION SOURCE (unrecogn ized section and content) FOR RECORDS PERTAINING TO PATIENTS WHO ARE OR HAVE BEEN ENROLLED IN A CHEMICAL DEPENDENCY/SUBSTANCEABUSE PROGRAM, SOME INFORMATION MAY BE OMITTED. This clinical summary was aggregated from multiple sources. Caution should be exercised in using it in the provision of clinical care. This summary normalizes information from multiple sources, and as a consequence, information in this document may materially change the coding, format and clinical context of patient data. In addition, data may be omitted in some cases. CLINICAL DECISIONS SHOULD BE BASED ON THE PRIMARY CLINICAL RECORDS. [employer] [facility]. provides no warranty or guarantee of the accuracy or completeness of information in this document.
[2023-02-10] MEDS: Ketorolac 15 MG/ML Vial IV (20:01)
[2023-02-10] MEDS: Clindamycin HCl 150 MG Capsule 450 MG PO (20:02)
[2023-02-10 20:10] VITALS: PULSE 81; RESP 16; O2SAT 97
== END 2023-02-10 20:10 | disposition home or self-care (01) ==
PROVIDERS: Emergency Provider Emergency Medicine; PCP Student in an Organized Health Care Education/Training Program; Visit Provider Emergency Medicine
DX: K11.20 Sialoadenitis, unspecified (principal); E11.9 Type 2 diabetes mellitus without complications; I10 Essential (primary) hypertension; E03.9 Hypothyroidism, unspecified; Z88.0 Allergy status to penicillin; Z79.84 Long term (current) use of oral hypoglycemic drugs; Z79.890 Hormone replacement therapy; Z79.899 Other long term (current) drug therapy
CPT/HCPCS: 70491; 80048; 85025; 96374; 99284; Q9967; A4216

== ENCOUNTER 2024-06-07 16:57 | Emergency (ER) | payer BC, SELFPAY ==
[2024-06-07 17:00] VITALS: BP 142/97; PULSE 85; RESP 18; TEMP 36.6; O2SAT 97; BMI 50.3
[2024-06-07 18:59] VITALS: BP 149/88; PULSE 77; RESP 16; O2SAT 95
[2024-06-07 19:55] LABS: Absolute Lymphocyte Count 1.84 X10^3/uL (0.83-4.51); Absolute Neutrophil Count 2.6 X10^3/uL (2.0-7.7); Basophil# 0.03 X10^3/uL; Basophil% 0.6 % (0-1); Eosinophil# 0.14 X10^3/uL; Eosinophils% 2.8 % (0-5); Hematocrit 44.2 % (37-47); Hemoglobin 14.4 g/dL (12.0-15.0); Lymphocyte # 1.84 X10^3/ul (0.83-4.51); Lymphocyte % 36.4 % (19-41); Mean Corp Hgb Conc 32.6 g/dL (32-36); Mean Corpuscular Hgb 28.2 pg (27.0-32.0); Mean Corpuscular Volume 86.5 fL (81-99); Mean Platelet Vol. 10.3 fl (6.2-12.0); Monocyte# 0.38 X10^3/uL; Monocyte% 7.5 % (0-10); NRBC Flagged by Analyzer 0 % (0-5); Neutrophil # 2.64 X10^3/uL (2.7-7.7); Neutrophil % 52.3 % (47-70); Platelet Count 154 K/mm3 (150-450); RBC Distribution Width SD 44.6 fl (35.1-43.9); Red Blood Count 5.11 M/mm3 (4.2-5.4); White Blood Count 5.1 K/mm3 (4.4-11.0)
[2024-06-07 20:00] VITALS: BP 127/76; PULSE 79; RESP 18; O2SAT 96
[2024-06-07 20:14] LABS: Bacteria 0 SEEN /hpf (None Seen); Mucous, Urine 0 SEEN /hpf (<or=2+)
[2024-06-07 20:22] LABS: ALB/GLOB Ratio 1.1 RATIO (0.9-2.4); AST(SGOT) 25 U/L (<=31); Alanine Aminotransfer ALT/SGPT 23 U/L (<=34); Albumin, Serum 4.2 g/dL (3.5-5.0); Alkaline Phosphatase 106 U/L (35-104); Anion Gap 11 (5-15); BUN 14 mg/dL (4-19); Calcium,Total 9.4 mg/dL (7.6-11.0); Carbon Dioxide 27.3 mmol/L (21.0-32.0); Chloride 100 mmol/L (98-108); Creatinine, Serum 0.66 mg/dL (0.70-1.20); EST Glomerular Filtration Rate 106 (>60); Estimated Creatinine Clearance 145.17 ml/min (50-250); Globulin 3.8 g/dL (2.2-4.2); Glucose 167 mg/dL (70-99); Sodium Level 138 mmol/L (133-145); Total Bilirubin 0.29 mg/dL (0.00-1.30)
[2024-06-07 20:43] LABS: Color, Urine Yellow (Yellow); Glucose, Dipstick Normal (Normal); Ketone-Dipstick Negative (Negative); Leukocyte Esterase-Dipstick Negative /ul (Negative); Nitrite-Dipstick Negative (Negative); Occult Blood-Urine Negative /ul (Negative); Protein-Dipstick 15 mg/dl (Negative); Specific Gravity, Urine 1.015 (1.002-1.030); Urine Bilirubin Dipstick Negative (Negative); Urine Clarity Clear (Clear); Urine Urobilinogen 1 mg/dl (Normal)
--- NOTE | 2024-06-07 21:13 | CT_ITS ---
PROCEDURE: ABDOMEN/PELVIS WITHOUT CONT 06/07/2024 REASON FOR EXAM: FLANK PAIN TECHNIQUE: Abdomen and pelvis CT without intravenous contrast. Noncontrast technique limits evaluation of the abdominal and pelvic viscera. Coronal and Sagittal reconstruction series were provided. One or more dose reduction techniques were used (e.g., Automated exposure control, adjustment of the mA and/or kV according to patient size, use of iterative reconstruction technique). PATIENT PREPARATION: Per protocol ORAL CONTRAST TYPE: None. AMOUNT: mL COMPARISON: None FINDINGS: Lung bases: Unremarkable. Liver: Hepatomegaly, craniocaudal length 23.7 cm. No focal lesion. Gallbladder: No ductal dilation. Gallbladder is collapsed. No cholelithiasis. Spleen: Splenomegaly, craniocaudal length 15.3 cm. No focal lesion. Pancreas: Normal size. No surrounding inflammation. Adrenals: Unremarkable. Kidneys: Punctate left inferior pole nonobstructing calculus, without hydronephrosis. Bladder: Unremarkable. Reproductive Organs: No pelvic mass. Bowel: Stomach is unremarkable. No bowel dilation or wall thickening. Moderate colonic stool. Appendix: The appendix is not identified. There is no inflammatory process identified in the right lower quadrant to suggest appendicitis. Lymph nodes: No suspicious lymph node enlargement. Vasculature: The abdominal aorta and IVC contours are normal. Noncontrast technique limits evaluation. Peritoneum / Retroperitoneum: No ascites. No pneumoperitoneum. Bones: Degenerative changes of the spine. CT/Abdomen/Pelvis without Cont IMPRESSION: Punctate left inferior pole nonobstructing calculus, without hydronephrosis. Hepatosplenomegaly and diffuse hepatic steatosis. Reading Location: [facility]
--- NOTE | 2024-06-07 21:15 | EX.ED.DYSGE1 ---
HPI History of Present Illness Chief Complaint: Flank Pain Informant: patient Onset/Context/Timing Onset: Days (3) Context: Sudden Onset Timing: Intermittent Quality: Sharp Location: Right flank Worsened by: Certain movements Relieved by: Certain positions Narrative Narrative: Patient presents with right flank pain that has been getting worse over the past 3 days. Patient states it has been intermittent. Patient states it is worse with certain movements and better with certain positions. Patient describes her pain as sharp. Patient states it does feel somewhat similar to her prior kidney stone. Patient denies any radiation to her inguinal area however. Patient denies any fevers or chills. Patient denies any nausea or vomiting. Patient denies any dysuria or hematuria. [facility] Medical History Rheumatoid arthritis Diabetes Arthritis Sjogren's syndrome Strain of left knee Hypothyroid Hypertension Home Medications ?Medication ?Instructions ?Recorded ?Last Taken ?Type bupropion HCl 100 mg tablet,12 hr 100 mg PO BID 02/17/19 Unknown History sustained-release fluoxetine 10 mg capsule 10 mg PO DAILY 06/25/20 Unknown History fluoxetine 40 mg capsule 40 mg PO DAILY 06/25/20 Unknown History levothyroxine 100 mcg tablet 100 mcg PO DIRECTED 06/25/20 Unknown History lisinopril 20 1 tab PO DAILY 06/25/20 Unknown History mg-hydrochlorothiazide 12.5 mg tablet lorazepam 0.5 mg tablet 0.5 mg PO DAILY PRN 06/25/20 Unknown History metformin 500 mg tablet,extended 1,000 mg PO DAILY 06/25/20 Unknown History release 24 hr sitagliptin phosphate 100 mg tablet 100 mg PO DAILY 06/25/20 Unknown History hydrocodone-acetaminophen 5-325mg 1 tab PO Q6H PRN PRN Pain 3 days 09/09/22 Unknown Rx 5mg-325mg #10 TABLETS naproxen 500 mg tablet (Naprosyn) 500 mg PO BID PRN pain #20 tabs 09/09/22 Unknown Rx clindamycin HCl 150 mg capsule 450 mg (3 x 150 mg) PO TID #90 caps 02/10/23 Unknown Rx hydrocodone-acetaminophen 5-325mg 1 tab PO Q6H PRN PRN Pain 3 days 02/10/23 Unknown Rx 5mg-325mg #12 TABLETS ibuprofen 600 mg tablet 600 mg PO Q6H PRN PRN pain #20 02/10/23 Unknown Rx TABLETS naproxen 500 mg tablet 500 mg PO BID PRN PRN Pain Score 06/07/24 Unknown Rx #20 tabs Allergy/AdvReac Type Severity Reaction Status Date / Time Penicillins Allergy Severe Anaphylaxis Verified 06/07/24 17:01 bee pollen Allergy Mild Rash Verified 06/07/24 17:01 yellow dye Allergy Rash Verified 06/07/24 17:01 Family History Mother Diabetes Arthritis Father Colon cancer Hypertension CVA (cerebral vascular accident) Diabetes Surgical History History of carpal tunnel release of both wrists History of hysterectomy Social History household members: spouse housing: house current occupational status: employed Smoking Status: Never smoker alcohol intake: never what type of physical activity do you participate in: walking do you feel safe at home: Yes ROS ROS ED Constitutional Constitutional ED: Denies chills or fever(s) Eyes Eyes: Denies blurry vision or change in vision ENT ENT ED: Denies rhinorrhea or sore throat Cardiovascular Cardiovascular: Denies chest pain or palpitations Respiratory/Chest Respiratory/Chest: Denies cough or dyspnea Gastrointestinal Gastrointestinal: Denies nausea or vomiting Genitourinary Genitourinary ED: Denies dysuria or hematuria Musculoskeletal Musculoskeletal: Reports back pain; Denies neck pain Integumentary Denies abscess or rash Neurologic Neurologic: Denies headache(s) or weakness Allergic/Immunologic Allergic/Immunologic ED: Denies mouth swelling or urticaria EXAM Physical Exam Const Vital Signs: 06/07/24 17:00 06/07/24 18:59 06/07/24 20:00 Temperature 97.8 F Temperature Source Oral Pulse Rate 85 77 79 Respiratory Rate 18 16 18 Blood Pressure 142/97 H 149/88 H 127/76 H Blood Pressure Mean 112 108 93 Pulse Ox 97 95 96 Oxygen Delivery Method Room Air Room Air Room Air Positive well nourished and well developed Constitutional Narrative: BMI is 50.4 General Appearance ED: well developed and NAD HEENT Reports moist mucous membranes Neck supple and no JVD Resp normal respiratory effort and clear to auscultation bilaterally Cardio regular rate and regular rhythm GI non-tender and non-distended Palpation: soft Back/Spine General Back: CVA tenderness right Neuro oriented x3, CN's II-XII intact bilaterally and no sensory deficits noted Motor Exam: strength 5/5 throughout Psych mental status grossly normal MDM MDM MDM Narrative Medical decision making narrative: Differential diagnosis includes ureteral calculus, pyelonephritis, urinary tract infection, electrolyte abnormality, and musculoskeletal pain. CBC will be obtained to assess for leukocytosis and anemia. Comprehensive metabolic profile will be obtained to assess for hepatic function, renal function, and electrolyte abnormality. Urinalysis will be obtained to assess for urinary tract infection and hematuria. CT scan of the abdomen and pelvis will be obtained to assess for ureteral calculus, bowel obstruction, and perforation. Lab Data Attestation: I reviewed the patient's lab results. Lab results narrative: CBC was reviewed and was within normal limits. Comprehensive metabolic profile was reviewed. Glucose was mildly elevated at 167. The remainder is within normal limits. Urinalysis was reviewed. There is no evidence of urinary tract infection or hematuria. Labs: Laboratory Results - last 24 hr 06/07/24 06/07/24 19:35 20:05 WBC 5.1 RBC 5.11 Hgb 14.4 Hct 44.2 MCV 86.5 MCH 28.2 MCHC 32.6 RDW Std Deviation 44.6 H RDW Coeff of Carolyn 14.0 Plt Count 154 MPV 10.3 Immature Gran % (Auto) 0.400 Neut % (Auto) 52.3 Lymph % (Auto) 36.4 [place] % (Auto) 7.5 Eos % (Auto) 2.8 Baso % (Auto) 0.6 Absolute Neuts (auto) 2.6 Absolute Lymphs (auto) 1.84 Nucleated RBC % 0 Sodium 138 Potassium 4.0 Chloride 100 Carbon Dioxide 27.3 Anion Gap 11 BUN 14 Creatinine 0.66 L Estim Creat Clear Calc 145.17 Est GFR (MDRD) Non-Af 106 BUN/Creatinine Ratio 21.0 H Glucose 167 H Calcium 9.4 Total Bilirubin 0.29 AST 25 ALT 23 Alkaline Phosphatase 106 H Total Protein 8.0 Albumin 4.2 Globulin 3.8 Albumin/Globulin Ratio 1.1 Urine Color Yellow Urine Clarity Clear Urine pH 7.0 Ur Specific [place] 1.015 Urine Protein 15 H Urine Glucose (UA) Normal Urine Ketones Negative Urine Occult Blood Negative Urine Nitrite Negative Urine Bilirubin Negative Urine Urobilinogen 1 H Ur Leukocyte Esterase Negative Urine RBC 0-5 SEEN Urine WBC 0-5 SEEN Ur Squamous Epith Cells 0-5 SEEN Urine Bacteria 0 SEEN Urine Mucus 0 SEEN Radiography Diagnostic Testing: Clinical Impression(s) from Imaging Studies Abdomen/Pelvis CT 06/07/24 21:13 IMPRESSION: Punctate left inferior pole nonobstructing calculus, without hydronephrosis. Hepatosplenomegaly and diffuse hepatic steatosis. Reading Location: [facility] [place] CT scan of the abdomen and pelvis was obtained. There is a nonobstructing calculus in the inferior pole of the left kidney. There is no hydronephrosis. There is no other acute abnormality noted. This was interpreted by the radiologist and was also independently reviewed by myself. Treatment and Re-Evaluation :: Patient was given IV fluids, morphine, and Zofran. Patient was feeling better on reevaluation. Patient was advised of her findings. Patient was advised that this could be musculoskeletal in nature. Patient was instructed to follow-up with her primary care physician in 5 to 7 days. Patient was given a prescription for Naprosyn for pain. Patient understood and was agreeable with the plan. All questions were answered. Discharge Plan Triage Chief Complaint: Flank Pain ED Provider: Tam Estrada Dx/Rx/DC Orders Clinical Impression: Acute right flank pain, Obesity Instructions: ED Flank Pain, Uncertain Cause Prescriptions: Continued naproxen 500 MG tablet 500 mg PO BID PRN PRN (Reason: Pain Score 1-10/10) Qty: 20 0RF No Action levothyroxine 100 mcg tablet 100 mcg PO DIRECTED Patient Comments: TAKE 1 TABLET BY MOUTH ONCE DAILY ON 6 DAYS A WEEK AND 2 TABLETS DAILY ON 1 DAY A WEEK lisinopril-hydrochlorothiazide 20-12.5 mg tablet 1 tab PO DAILY Patient Comments: TAKE 1 TABLET BY MOUTH ONCE DAILY fluoxetine 40 mg capsule 40 mg PO DAILY Patient Comments: TAKE 1 CAPSULE BY MOUTH ONCE DAILY fluoxetine 10 mg capsule 10 mg PO DAILY Patient Comments: TAKE 1 CAPSULE BY MOUTH ONCE DAILY IN ADDITION TO 40 MG CAPSULE Januvia 100 mg tablet 100 mg PO DAILY Patient Comments: TAKE 1 TABLET BY MOUTH ONCE DAILY metformin 500 mg tablet extended release 24 hr 1,000 mg PO DAILY Patient Comments: TAKE 2 TABLETS BY MOUTH ONCE DAILY WITH LUNCH lorazepam 0.5 mg tablet 0.5 mg PO DAILY PRN bupropion HCl 100 MG tablet sustained-release 12 hr 100 mg PO BID naproxen [Naprosyn] 500 mg tablet 500 mg PO BID PRN (Reason: pain) Qty: 20 0RF hydrocodone-acetaminophen 5-325 mg tablet 1 tab PO Q6H PRN PRN (Reason: Pain) 3 Days Qty: 10 0RF clindamycin HCl 150 mg capsule 450 mg PO TID Qty: 90 0RF hydrocodone-acetaminophen [hydrocodone-acetaminophen] 5-325 mg tablet 1 tab PO Q6H PRN PRN (Reason: Pain) 3 Days Qty: 12 0RF ibuprofen 600 mg tablet 600 mg PO Q6H PRN PRN (Reason: pain) Qty: 20 0RF Primary Care Provider: Josh Hartman Referrals: Josh Hartman DO [Primary Care Provider] - 5-7 Days Print Language: Croatian Disposition Disposition: Home, Self Care
[2024-06-07] MEDS: Morphine 4 MG/ML Syringe IV (21:24)
[2024-06-07] MEDS: Ondansetron 4 MG/2 ML Vial IV (21:24)
[2024-06-07] MEDS: 0.9% Normal Saline (1000mL) 1,000 ML 1000 ML IV (21:25)
[2024-06-07 21:36] LABS: Red Blood Cells-Urine 0-5 SEEN /hpf (0-5); Squamous Epithelial Cells - UA 0-5 SEEN /hpf (5-10); White Blood Cells 0-5 SEEN /hpf (0-5)
[2024-06-07 22:00] VITALS: BP 118/74; PULSE 74; RESP 18; O2SAT 97
[2024-06-07 22:47] VITALS: BP 112/78; PULSE 74; RESP 18; TEMP 36.6; O2SAT 99
== END 2024-06-07 22:50 | disposition home or self-care (01) ==
PROVIDERS: Emergency Provider Emergency Medicine; PCP Student in an Organized Health Care Education/Training Program; Visit Provider Emergency Medicine
DX: N20.0 Calculus of kidney (principal); Z68.43 Body mass index [BMI] 50.0-59.9, adult; E11.9 Type 2 diabetes mellitus without complications; E66.9 Obesity, unspecified; I10 Essential (primary) hypertension; E03.9 Hypothyroidism, unspecified; Z79.84 Long term (current) use of oral hypoglycemic drugs; Z79.890 Hormone replacement therapy; Z79.899 Other long term (current) drug therapy
CPT/HCPCS: 74176; 80053; 81001; 85025; 96361; 96374; 96375; 99283; A4216; J2405